=== PATIENT | male | born 1940 | race Caucasian/White ===

== ENCOUNTER 2024-05-24 03:52 | Inpatient (IN) | payer MEDICARE, BC, SELFPAY ==
[2024-05-23 17:53] VITALS: BP 139/75
[2024-05-23 18:19] LABS: % Basophils 0.4 % (0-2); % Eosinophils 0.2 % (0-6); % Immature Granulocytes 0.4 % (0-0.5); % Lymphocytes 8.2 % (20.5-51.1); % Monocytes 5.8 % (1.7-9.3); Absolute Lymphocytes 0.7 10^3/uL (1.2-3.4); Absolute Monocytes 0.5 10^3/uL (0.1-0.6); Absolute Neutrophils 6.9 10^3/uL (1.4-6.5); Hematocrit 34.3 % (39.0-52.0); Hemoglobin 11.2 g/dL (13.0-18.0); Mean Corp Hgb Conc. 32.7 g/dL (33.0-37.0); Mean Corpuscular Hgb 29.9 pg (27.0-31.0); Mean Corpuscular Volume 91.7 fL (80.0-94.0); Mean Platelet Volume 8.6 fL (7.4-10.4); Nucleated Red Blood Cells % 0 % (-); Platelet Count 183 10^3/uL (130-400); Red Blood Cell Count 3.74 10^6/uL (4.70-6.10); Red Cell Dist. Width 14.2 % (11.5-14.5); White Blood Cell Count 8.1 10^3/uL (4.8-10.8)
[2024-05-23 18:33] LABS: ALT (SGPT) 23 U/L (0-50); AST (SGOT) 27 U/L (17-59); Albumin 3.5 g/dl (3.5-5.0); Alkaline Phosphatase 69 U/L (38-126); Blood Urea Nitrogen 28 mg/dl (9-20); Calcium 8.8 mg/dl (8.4-10.2); Carbon Dioxide 28 mmol/L (22-30); Chloride 102 mmol/L (98-107); Glucose 123 mg/dl (70-99); Potassium 4.4 mmol/L (3.5-5.1); Sodium 139 mmol/L (135-145); Total Bilirubin 0.4 mg/dl (0.2-1.3); Total Protein 6.4 g/dl (6.3-8.2); eGFR > 60.00
[2024-05-23 18:45] LABS: Troponin I 0.017 ng/ml
[2024-05-23 20:25] LABS: Glucose - Point of Care 109 mg/dl (70-99)
[2024-05-23 21:44] LABS: Urine Albumin Trace (Neg - Trace); Urine Bilirubin Negative (Negative); Urine Character Clear (Clear); Urine Color Yellow; Urine Glucose Negative (Negative); Urine Ketone Negative (Negative); Urine Leukocyte Negative (Negative); Urine Nitrite Negative (Negative); Urine Occult Blood Trace (Negative); Urine Specific Gravity 1.015 (<1.030); Urine Urobilinogen Negative (Neg - 1+)
[2024-05-23 21:57] VITALS: BMI 28.8
[2024-05-23 21:58] VITALS: BP 141/61
[2024-05-23 21:58] LABS: Urine Bacteria Few (Negative); Urine White Cell 0-2 /HPF (0-5)
--- NOTE | 2024-05-23 22:36 | ED.GENMED ---
History of Present Illness
<DELFIN Delacruz - Last Filed: 05/24/24 05:24>
General
Chief Complaint: Weakness
Source: patient and significant other
Exam Limitations: none
Time Seen by Provider: 05/23/24 22:02
Nursing documentation reviewed up to this point in time: agreed with
History of Present Illness
History of Present Illness:
Patient is a 83 yo M w/ PMH of GA, stroke, DM, vascular disease, spinal stenosis, and inguinal hernia who presents w/ weakness x1 day. States he could not get out of bed today. Reports severe back pain and R groin pain that impede his movement.
States groin pain is worsening. Pain is in same place as hernia repair years ago. Pt denies bulging/swelling in groin. States pain has been present for months but worse in past few days. Pt also reports vomiting x 3 days. Vomited 2x today, 2x
yesterday, and once day before. States vomit looks like food he ate recently. Reports moderate amount of vomit but notes it comes on quickly.
If applicable-neuro sx onset
Onset of symptoms known: No
Time pt last seen normal is known: Yes
Date last time pt seen normal: 05/22/24
Review of Systems
<DELFIN Delacruz - Last Filed: 05/24/24 05:24>
Review of Systems
Constitutional: Denies fatigue
Respiratory: Denies cough or trouble breathing
Cardiac: Denies chest pain
ABD/GI: Reports abdominal pain, nausea and vomiting; Denies diarrhea, constipated or anorexia
Musculoskeletal: Reports back pain
Neurological: Reports headache and weakness; Denies dizzy or numbness
Phy Exam
<DELFIN Delacruz - Last Filed: 05/24/24 05:24>
General Physical Exam
General Presentation: well appearing
General age: appears stated age
General Habitus: elderly
General Mental: alert
Eye Exam
Eye Exam: PERRL
Cardiovascular Exam
Cardiovascular Exam: regular rate/rhythm, no edema, no gallop and no murmur
Pulmonary Exam
Pulmonary Exam: lungs clear, no respiratory distress, no rales, no crackles, no rhonchi and no wheezing
Gastrointestinal Exam
Gastrointestinal Exam: normal bowel sounds and other (tenderness in R groin)
Musculoskeletal Exam
Musculoskeletal Exam: edema (2+ B/L LE pitting edema) and other (some loss of sensation in BL LE)
Course
<DELFIN Delacruz - Last Filed: 05/24/24 05:24>
Orders/Labs/Results
Orders:
Orders
05/23/24 17:52
EKG [Electrocardiogram (*1)] Urgent
Reason for Study: Chest Pain
EKG- Treatment ONCE
05/23/24 18:12
CBC/With Diff [Complete Blood Count/With Diff] Urgent
CMP [Comprehensive Metabolic Panel] Urgent
Troponin I Urgent
05/23/24 21:37
Urinalysis Reflex To Culture Urgent
Date Specimen was Collected: 05/23/24
Time Specimen was Collected: 20:51
Urine Microscopic Reflex Cult Urgent
05/23/24 22:19
0.9% Sodium Chloride 1000 ml [Nss] 1,000 ml IV BOLUS
Acetaminophen [Tylenol] 1,000 mg PO NOW STA
05/23/24 22:50
COVID-19 Antigen Urgent
Source: Nasal Swab
Lactic Acid Urgent
Influenza A+B Rapid Molecular Urgent
DAYAN Source: Nasal Swab
Specimen Description:
05/23/24 23:35
Morphine Sulfate 4 mg IV NOW STA
05/24/24 00:01
CT Abd/pelvis W Iv Cont Urgent
Reason For Exam: RLQ pain, LBP, low grade fever
CT Head W/o Iv Contrast Urgent
Reason For Exam: acute profound weakness-remote hx CVA
05/24/24 02:47
Admit/Transfer Patient As Directed
Co-Sign Provider:
Level of Care: Inpatient admission
Assign to:: Telemetry
Physician / Group: Kevyn
Diagnosis: Ambulatory Dysfunction
Reason for Telemetry: Arrhythmia
Date to Stop Telemetry: 05/27/24
Time to Stop Telemetry: 11:00
Reason for Hospitalization: Ambulatory Dysfunction
Expected length of stay greater than two midnights?: Yes
ELOS- Estimated Length of Stay in days: 2
I certify the patient meets the requirements for IP care: Yes
PRN Pain Medication Management As Directed
May give lesser potent ordered pain med per pt: Yes
preference::
Protocol:: Medication orders for pain may be administered in a
manner that supports deferring to patient preference
when the pt is:
- Requesting an ordered lesser potent pain medication.
Least to most potent pain medications are defined
as: acetaminophen < NSAID < tramadol < opioids
(morphine, oxycodone, hydromorphone).
- Requesting a lesser dose of the same medication IF
ORDERED.
- Requesting a less intrusive route of administration
if both routes are prescribed by the provider (PO <
IV).
05/24/24 02:48
Code Status As Directed
Resuscitation Status: Do not resuscitate
Reached after discussion with pt or family/Healthcare POA: Yes
05/24/24 02:49
DNR Bracelet Application ONCE
05/24/24 02:53
CPK [Creatine Phosphokinase] Urgent
CRP [C-Reactive Protein] Urgent
ESR [Erythrocyte Sed Rate] Urgent
05/27/24 11:00
DC Protocol for Telemetry ONCE
Abnormal Lab Results
05/23/24 05/23/24 05/23/24
18:12 20:24 21:37
RBC 3.74 L 10^6/uL
(4.70-6.10)
Hgb 11.2 L g/dL
(13.0-18.0)
Hct 34.3 L %
(39.0-52.0)
MCHC 32.7 L g/dL
(33.0-37.0)
Absolute Neuts (auto) 6.9 H 10^3/uL
(1.4-6.5)
Absolute Lymphs (auto) 0.7 L 10^3/uL
(1.2-3.4)
Neutrophils % 85.0 H %
(42.2-75.2)
Lymphocytes % 8.2 L %
(20.5-51.1)
ESR
BUN 28 H mg/dl
(9-20)
Glucose 123 H mg/dl
(70-99)
Lactic Acid
C-Reactive Protein
Ur Occult Blood Reflex Trace A
(Negative)
Urine RBC 3-6 A /HPF
(0-2)
Urine Bacteria (Reflex) Few A
(Negative)
POC Glucose 109 H mg/dl
(70-99)
05/23/24 05/24/24
22:50 02:53
RBC
Hgb
Hct
MCHC
Absolute Neuts (auto)
Absolute Lymphs (auto)
Neutrophils %
Lymphocytes %
ESR 52 H mm/hour
(0-20)
BUN
Glucose
Lactic Acid 0.6 L mmol/L
(0.7-2.0)
C-Reactive Protein 37.30 H mg/L
(0.0-10.00)
Ur Occult Blood Reflex
Urine RBC
Urine Bacteria (Reflex)
POC Glucose
05/23/24 18:12
05/23/24 18:12
Vital Signs
Initial and Last Documented VS:
Initial Vital Signs
Temp Pulse Resp BP Pulse Ox
97.5 F 110 17 139/75 98
05/23/24 17:53 05/23/24 17:53 05/23/24 17:53 05/23/24 17:53 05/23/24 17:53
Last Documented Vital Signs
Temp Pulse Resp BP Pulse Ox
97.9 F 71 15 134/64 97
05/24/24 05:17 05/24/24 05:17 05/24/24 05:17 05/24/24 05:17 05/24/24 05:17
<Paige Hannah, DO - Last Filed: 05/24/24 02:08>
Orders/Labs/Results
Orders:
Orders
05/23/24 17:52
EKG [Electrocardiogram (*1)] Urgent
Reason for Study: Chest Pain
EKG- Treatment ONCE
05/23/24 18:12
CBC/With Diff [Complete Blood Count/With Diff] Urgent
CMP [Comprehensive Metabolic Panel] Urgent
Troponin I Urgent
05/23/24 21:37
Urinalysis Reflex To Culture Urgent
Date Specimen was Collected: 05/23/24
Time Specimen was Collected: 20:51
Urine Microscopic Reflex Cult Urgent
05/23/24 22:19
0.9% Sodium Chloride 1000 ml [Nss] 1,000 ml IV BOLUS
Acetaminophen [Tylenol] 1,000 mg PO NOW STA
05/23/24 22:50
COVID-19 Antigen Urgent
Source: Nasal Swab
Lactic Acid Urgent
Influenza A+B Rapid Molecular Urgent
DAYAN Source: Nasal Swab
Specimen Description:
05/23/24 23:35
Morphine Sulfate 4 mg IV NOW STA
05/24/24 00:01
CT Abd/pelvis W Iv Cont Urgent
Reason For Exam: RLQ pain, LBP, low grade fever
CT Head W/o Iv Contrast Urgent
Reason For Exam: acute profound weakness-remote hx CVA
05/24/24 02:47
Admit/Transfer Patient As Directed
Co-Sign Provider:
Level of Care: Inpatient admission
Assign to:: Telemetry
Physician / Group: Kevyn
Diagnosis: Ambulatory Dysfunction
Reason for Telemetry: Arrhythmia
Date to Stop Telemetry: 05/27/24
Time to Stop Telemetry: 11:00
Reason for Hospitalization: Ambulatory Dysfunction
Expected length of stay greater than two midnights?: Yes
ELOS- Estimated Length of Stay in days: 2
I certify the patient meets the requirements for IP care: Yes
PRN Pain Medication Management As Directed
May give lesser potent ordered pain med per pt: Yes
preference::
Protocol:: Medication orders for pain may be administered in a
manner that supports deferring to patient preference
when the pt is:
- Requesting an ordered lesser potent pain medication.
Least to most potent pain medications are defined
as: acetaminophen < NSAID < tramadol < opioids
(morphine, oxycodone, hydromorphone).
- Requesting a lesser dose of the same medication IF
ORDERED.
- Requesting a less intrusive route of administration
if both routes are prescribed by the provider (PO <
IV).
05/24/24 02:48
Code Status As Directed
Resuscitation Status: Do not resuscitate
Reached after discussion with pt or family/Healthcare POA: Yes
05/24/24 02:49
DNR Bracelet Application ONCE
05/24/24 02:53
CPK [Creatine Phosphokinase] Urgent
CRP [C-Reactive Protein] Urgent
ESR [Erythrocyte Sed Rate] Urgent
05/27/24 11:00
DC Protocol for Telemetry ONCE
Abnormal Lab Results
05/23/24 05/23/24 05/23/24
18:12 20:24 21:37
RBC 3.74 L 10^6/uL
(4.70-6.10)
Hgb 11.2 L g/dL
(13.0-18.0)
Hct 34.3 L %
(39.0-52.0)
MCHC 32.7 L g/dL
(33.0-37.0)
Absolute Neuts (auto) 6.9 H 10^3/uL
(1.4-6.5)
Absolute Lymphs (auto) 0.7 L 10^3/uL
(1.2-3.4)
Neutrophils % 85.0 H %
(42.2-75.2)
Lymphocytes % 8.2 L %
(20.5-51.1)
ESR
BUN 28 H mg/dl
(9-20)
Glucose 123 H mg/dl
(70-99)
Lactic Acid
C-Reactive Protein
Ur Occult Blood Reflex Trace A
(Negative)
Urine RBC 3-6 A /HPF
(0-2)
Urine Bacteria (Reflex) Few A
(Negative)
POC Glucose 109 H mg/dl
(70-99)
05/23/24 05/24/24
22:50 02:53
RBC
Hgb
Hct
MCHC
Absolute Neuts (auto)
Absolute Lymphs (auto)
Neutrophils %
Lymphocytes %
ESR 52 H mm/hour
(0-20)
BUN
Glucose
Lactic Acid 0.6 L mmol/L
(0.7-2.0)
C-Reactive Protein 37.30 H mg/L
(0.0-10.00)
Ur Occult Blood Reflex
Urine RBC
Urine Bacteria (Reflex)
POC Glucose
05/23/24 18:12
05/23/24 18:12
Vital Signs
Initial and Last Documented VS:
Initial Vital Signs
Temp Pulse Resp BP Pulse Ox
97.5 F 110 17 139/75 98
05/23/24 17:53 05/23/24 17:53 05/23/24 17:53 05/23/24 17:53 05/23/24 17:53
Last Documented Vital Signs
Temp Pulse Resp BP Pulse Ox
97.9 F 71 15 134/64 97
05/24/24 05:17 05/24/24 05:17 05/24/24 05:17 05/24/24 05:17 05/24/24 05:17
<DELFIN Delacruz - Last Filed: 05/24/24 05:24>
*Critical Care Note
Total Time (30-74mins, 75-104mins- exclusive of procedures): Not Applicable
<Paige Hannah DO - Last Filed: 05/24/24 02:08>
*Radiology
Radiology exam reviewed: radiology read reviewed (CT of the head, CT abdomen pelvis showed no acute findings.)
*Pulse Oximetry
Patient hypoxic: no
*EKG
Interpreted by ED Provider?: Yes
Interpretation: abnormal
Comparison EKG: no comparison EKG present
Rate: tachycardiac
Rhythm: sinus
[place]: normal axis
Interval: normal interval
QRS Pattern: right bundle branch block
Ischemia: other (Old inferior Q waves)
*Dough Mixer Interpretation
Rate: normal
Interpretation: normal
Rhythm: sinus
ED Attending Note
<DELFIN Delacruz - Last Filed: 05/24/24 05:24>
-
Portions of this chart may have been created with voice recognition software.� Occasional wrong word or��sound alike� substitutions may have occurred due to the inherent limitations of voice recognition software.
<Paige Hannah DO - Last Filed: 05/24/24 02:08>
ED Attending Note
Patient seen and examined by attending physician: Yes
I performed the substantive portion of visit, reviewed & personally made and approve the management plan that is documented in note by myself or ANNETTE.: Yes
ED Attending Note:
This is an 83-year-old gentleman who resides at home with his . He has history of CAD, GA, remote history of PTCA with stents as well as CABG. History of carotid artery disease status post carotid endarterectomy, remote history of CVA, history
of Parkinson disease, insulin requiring diabetes, hyperlipidemia. Macular degeneration. He also suffers with chronic low back pain related to spinal stenosis and chronic right inguinal pain thought to be related to scar tissue from right inguinal
hernia repair as a child.
Right inguinal pain persists despite excision of right inguinal scar tissue performed approximately 5 years ago.
He and his moved out of [place] 3 years ago to be closer to family in this area. He does still continue to follow with multiple specialists in [place] but has been slowly transitioning to local specialists.
He has undergone epidural steroid injections in his back number of years ago without relief.
Takes Tylenol arthritis twice daily as well as Salonpas, topical lidocaine with only minimal improvement.
He has chronic ambulatory dysfunction utilizing a walker to ambulate, has an adjustable bed at home but generally manages well and can get out of the house and into the car with his walker and in fact received his annual influenza vaccine and COVID
vaccine booster yesterday at his local pharmacy.
He does however admit to moderate increase in low back pain and right lower quadrant/right inguinal pain, progressive over the past week with intermittent nausea and vomiting over the past 3 days.
He has chronic constipation, generally passes a large bowel movement every 6 to 7 days. His last bowel movement was 2 days ago. Is not maintained on daily bowel regimen, takes Ducolax on rare occasions.
He has history of peripheral vascular disease with history of small diabetic ulcer distal left great toe that has recently healed. Underwent arterial Doppler study 3 to 4 weeks ago which showed arterial insufficiency but at this point no indication
for intervention.
He presents to the ED today due to significant/profound weakness, unable to get up out of bed this morning. He did suffer a slow slip and fall out of his adjustable recliner 2 weeks ago but since then no recurrent falls.
His was able to get him out of the house into the car tonight with assistance from 4 other family members and upon arrival to the ED required for security guards to assist him to get up out of the car into a wheelchair.
He denies cough no shortness of breath, no nasal congestion, no headache, no dizziness or lightheadedness, no chest pain. He denies dysuria and urgency nor hematuria.
As above, increase in low back pain and right inguinal/right lower quadrant pain over the past several days.
GENERAL: 83-year-old gentleman appears his stated age, awake and alert, appears in mild distress/mildly uncomfortable related to pain. Easily conversant. is accompanying. Low-grade fever noted 99.7 �F. Mildly tachycardic
EYE: pupils equal and reactive. Extraocular muscles are full. anicteric
NECK: Supple, nontender, no meningismus, no significant adenopathy.
ENT: posterior pharynx is clear, oral mucosa is dry. TM clear b/l, nares patent.
CARDIAC: Regular rate and rhythm, occasional ectopy. no murmur.
LUNGS: Clear breath sounds bilaterally, no acute respiratory distress, no wheezes/rales/rhonchi
ABDOMEN: Soft, nondistended, moderate to exquisite tenderness right inguinal to right distal lower quadrant over palpable firm ridge right inguinal region. Very minimal erythema of skin overlying right inguinal region. No r/g, no cvat. normoactive
BS.
NEUROLOGICAL: Alert and oriented x3, no facial asymmetry. Motor strength 5/5 bilaterally. Gross sensation is intact. Mild resting tremor of upper extremities. Significant truncal weakness; patient unable to lift himself up to sitting position
requiring several staff members to assist him to sit up.
SKIN: Mildly hot to touch and dry, minimally pale in color, poor turgor, few scattered dark purple ecchymotic patches bilateral forearms, bilateral anterior superior knees, no petechiae skin intact. No rash.
MUSCULOSKELETAL: No C/C/E. Feet are mildly cool to touch with shoddy dorsalis pedal pulses bilaterally. There is a minute/pinpoint area of eschar distal tip of the left great toe. No erythema. No palpable tenderness.
PSYCH: Normal and appropriate interaction.
Patient presents with profound generalized weakness, noted to have low-grade fever. Concern for viral syndrome, adverse reaction to COVID/influenza vaccines yesterday, concern for UTI, concern for appendicitis, diverticulitis, colitis.
Has known spinal stenosis with chronic low back pain, chronic right inguinal pain, Parkinson's disease with marked increase in low back pain/right lower quadrant pain over the past few days. Chronically utilizes a walker for ambulation however
required multiperson assist to get up and transition from bed to wheelchair, wheelchair to car and then again multiperson assistance to get out of the car to wheelchair and then wheelchair to stretcher.
Acute febrile illness could certainly be cause for generalized weakness and acute ambulatory dysfunction but must also consider CVA, exacerbation of Parkinson's disease, exacerbation of spinal stenosis.
Labs thus far reveal normal white blood cell count, mild anemia, mild left shift on differential, moderately elevated BUN concerning for dehydration. Glucose 123.
Chemistries are otherwise unremarkable.
Troponin 0.017.
EKG shows sinus tachycardia, right bundle branch block, old inferior Q's. No old EKG to compare. He denies chest pain, no cough no shortness of breath but with low-grade fever, will check COVID and influenza.
Urinalysis shows no evidence of UTI however a few RBCs and with right lower quadrant pain, increase in low back pain, concern for ureteric stone, other consideration is colitis, appendicitis thus will check CT abdomen pelvis with IV contrast.
Due to history of CVA, multiple risk factors for ASCVD, complaints of generalized weakness, concern for CVA will check CT of the head.
Give Tylenol for fever, initiate IV fluids for dehydration.
Will give a small IV dose of morphine for back pain, right lower quadrant pain.
Due to acute severe weakness, inability to stand/ambulate patient will require acute hospitalization.
Discharge Plan
Departure
Patient Disposition: Admit
Date of Disposition: 05/24/24
Time of Disposition: 02:05
Admit to: Med/Surg
Admit to doctor: Kevyn
Presentation/result/management discussed w/ accepting MD/DO: Hospitalist
Condition: Fair
Discharge Problem:
acute severe generalized weakness, Acute febrile illness, Acute exacerbation of chronic low back pain
Interventions
Interventions:
*Risk Screen - Suicide Last Done: 05/23/24 17:53
*General Assessment Last Done: 05/23/24 21:59
*Neglect/Abuse Screening Last Done: 05/23/24 21:59
ED- Fall Risk Assessment Last Done: 05/24/24 04:00
*ED COVID-19 Vaccine History Last Done: 05/23/24 22:00
*Nursing Disposition Last Done: 05/24/24 05:17
ED- Cardiac Assessment Last Done: 05/23/24 22:00
ED- Neurological Assessment Last Done: 05/23/24 22:00
ED- Pulmonary Assessment Last Done: 05/23/24 22:00
Discharge Date and Time
Discharge Date/Time: 05/24/24 05:18
[2024-05-23] MEDS: NSS 1000 IV (22:53)
[2024-05-23] MEDS: TYLENOL 1000 MG PO (22:54)
[2024-05-23 23:00] VITALS: BP 110/67
[2024-05-23 23:13] LABS: Lactic Acid 0.6 mmol/L (0.7-2.0)
[2024-05-23 23:22] LABS: COVID-19 Antigen Negative (Negative)
[2024-05-23] MEDS: MORPHINE SULFATE 4 MG IV (23:53)
[2024-05-24] VITALS (14 sets, daily range): BP systolic 104–166; BP diastolic 58–90; PULSE 91; O2SAT 96
--- NOTE | 2024-05-24 03:19 | HPS.HSE ---
Family Physician
-
Family Physician: * NONE
Chief Complaint
-
Weakness
History of Present Illness
Patient is an 83y M with PMH significant for Parkinson's disease, spinal stenosis and ASCVD who presents to ED complaining of back pain, R groin pain and ambulatory dysfunction. History obtained from patient and his at the bedside.
reports long history of functional decline. At recent baseline, patient ambulates with a walker over very short distances within the home. Doctor's visits and trips outside of the home are extremely difficult given his mobility issues.
Patient went to his PCP for COVID and flu vaccines yesterday. He did not leave the vehicle due to his baseline ambulatory issues.
This AM upon waking, he was unable to get out of bed at all - which is not typical for him. He has an adjustable hospital bed and is typically able to get up with or without minimal assistance.
This AM he could not get up at all. states that he was extremely weak. Patient primarily complains of pain in the low back and the R groin which were severe and limited mobility.
They were able to eventually get him up and into the living room into his chair. However, this was much more difficult than usual and patient was brought to the ED for further evaluation.
Patient has long-standing / chronic complaints of back pain and R groin pain. He attributes this to spinal stenosis +/- chronic inguinal hernia repair discomfort.
These complaints are not new, but he states that pain was more severe today.
Patient has had no recent medication changes / adjustments.
He denies any recent illness including cough, dyspnea, fevers / chills, N/V/D, etc.
Medical History
Past Medical History
Past Medical History: Reports Other
Additional Past Medical History:
ASCVD (CAD, Carotid Stenosis, CVA, PAD)
DM-II
Parkinson's Disease
Macular Degeneration
Anxiety / Depression
Spinal Stenosis
Chronic Pain Syndrome
Past Surgical History: Reports Other
Additional Past Surgical History:
CABG x 3
Right CEA
Right Inguinal Herniorrhaphy
Right Inguinal Revision / Scar Tissue Removal
Social History
Tobacco: Former Smoker (Quit smoking about 35 years ago. 5ppd prior to that. > 100 pack years total use.)
Alcohol: None
Drug: None
Personal:
Living: With Family
Family History
Family History: Not pertinent
Allergies / Home Medications
Allergies reflects when Allergies were last updated in [employer].
Home Medications with original date entered in [employer]
Allergy/Medication List:
Allergies
Allergy/AdvReac Type Severity Reaction Status Date / Time
No Known Allergies Allergy Unverified 05/23/24 17:57
Home Medications
acetaminophen 650 mg tablet,extended release (Tylenol Arthritis Pain) 1,300 mg PO [id number] PRN mild pain 05/23/24
aspirin 81 mg chewable tablet 81 mg PO HS 05/23/24
atorvastatin 80 mg tablet 80 mg PO HS 05/23/24
fluoxetine 20 mg tablet 20 mg PO DAILY 05/23/24
insulin aspart U-100 100 unit/mL (3 mL) subcutaneous pen (Novolog FlexPen U-100 Insulin aspart) 1 sliding scale dose SC TID 05/23/24
insulin glargine 100 unit/mL (3 mL) subcutaneous pen (Basaglar KwikPen U-100 Insulin) 14 unit SC HS 05/23/24
lidocaine HCl 4 %-benzyl alcohol 10 % topical liquid roll-on (Salonpas Lidocaine Plus) 1 ea topical QIDPRN PRN right side and lower back pain 05/23/24
rasagiline 1 mg tablet 1 mg PO DAILY 05/23/24
Review of Systems
-
History Source: Patient and Family
A 12 point ROS was completed and negative except as noted: Yes
Constitutional: Reports Fatigue; Denies Fever or Chills
EENT: Denies Sore Throat
Respiratory: Denies Cough or Trouble Breathing
Cardiac: Denies Chest Pain or Palpitations
Abdomen/GI: Denies Abdominal Pain, Nausea, Vomiting, Diarrhea or Constipated
: Denies Dysuria or Frequency
Musculoskeletal: Reports Joint Pain and Other (Back Pain / R Groin Pain); Denies Edema
Neurological: Reports Weakness; Denies Dizzy, Headache or Numbness
Psych: Denies Depression or Anxiety
Physical Exam
Vital Signs
Vital Signs
Temp Pulse Resp BP Pulse Ox
99.7 F 85 16 135/89 98
05/23/24 21:58 05/24/24 02:45 05/24/24 02:45 05/24/24 02:00 05/24/24 02:45
Physical Exam
General: Other (83y M in no acute distress.)
HEENT: Moist mucous membranes, PERRLA and Other (No JVD.)
Respiratory: Other (Decreased BS at bases - otherwise clear.)
Cardiac: S1/S2, Regular Rhythm and Murmur (II/ NOREEN)
GI: Soft, Non Distended and Other (Decreased BS throughout. Mild tenderness in epigastric region and RLQ. No rebound / guarding.)
Musculoskeletal: No Clubbing, No Cyanosis and No Edema
Neuro: AO x 3 and Other (L weakness compared to R - presumably due to prior CVA. Weakness in bilateral LEs - perhaps slightly greater on the L. Reflexes diminished in LEs. Sensation is intact.)
Laboratory Results
-
05/23/24 18:12
05/23/24 18:12
Laboratory Results
Lactic Acid 0.6 mmol/L (0.7-2.0) L 05/23/24 22:50
Total Bilirubin 0.4 mg/dl (0.2-1.3) 05/23/24 18:12
AST 27 U/L (17-59) 05/23/24 18:12
ALT 23 U/L (0-50) 05/23/24 18:12
Alkaline Phosphatase 69 U/L (38-126) 05/23/24 18:12
Troponin I 0.017 ng/ml 05/23/24 18:12
Impression/Plan
-
A/P: Patient is an 83y M with PMH significant for ASCVD, Parkinson's disease and prior CVA who presents to ED for evaluation of generalized weakness and ambulatory dysfunction.
Weakness / Ambulatory Dysfunction
- Admit for further evaluation and treatment.
- Very difficult to gauge acuity here as clearly has been some functional decline over time.
- CT head done in the ED is unremarkable.
- Afebrile, non-toxic appearing.
- PT / OT evaluations.
- Neurology evaluation for additional recommendations.
- Patient did just have influenza and COVID vaccines - but less than 24 hours prior to new / increased weakness.
- Consider LP for further evaluation if persistent or certainly progressive weakness.
- Follow neurologic exam for any changes.
- Would be helpful to obtain any available prior records (no previous visits here).
Back Pain
R Groin Pain
Lumbar Spinal Stenosis
- Again, acute on chronic complaint with longstanding issues with chronic pain in both locations.
- Difficult to tell if mobility issues this AM were secondary to weakness or discomfort / pain with movement.
- CT scan with no evident acute spinal abnormality.
- Trial of gabapentin for pain control.
- Consider dedicated spinal imaging if needed.
- Follow-up ESR, CRP, etc.
Parkinson's Disease
- Current symptoms may reflect progression of Parkinson's.
- No recent med changes per patient / .
- Neuro, PT evals as noted above.
- Continue current rasagiline without change.
- Will hold fluoxetine for now given interaction with rasagiline.
ASCVD
- Stable. Continue current CV med regimen.
- Patient with documented coronary, carotid and peripheral arterial disease.
- Chronic L weakness s/p prior CVA - evidence of LUE atrophy due to chronic weakness, etc.
DM-II
- Stable. Continue basal : bolus insulin regimen.
- Follow glucose and cover with SSI as needed.
- Update A1C.
DVT Prophylaxis: SCDs
Code Status: DNR
[2024-05-24 03:42] LABS: Creatine Phosphokinase 67 U/L (55-170); Erythrocyte Sed Rate 52 mm/hour (0-20)
[2024-05-24] MEDS: NSS 1000 IV (06:36)
[2024-05-24 07:12] LABS: Hematocrit 32.5 % (39.0-52.0); Hemoglobin 10.4 g/dL (13.0-18.0); Mean Corpuscular Hgb 30.1 pg (27.0-31.0); Mean Corpuscular Volume 94.2 fL (80.0-94.0); Mean Platelet Volume 8.4 fL (7.4-10.4); Platelet Count 160 10^3/uL (130-400); Red Blood Cell Count 3.45 10^6/uL (4.70-6.10); Red Cell Dist. Width 14.5 % (11.5-14.5); White Blood Cell Count 4.3 10^3/uL (4.8-10.8)
[2024-05-24 07:37] LABS: Blood Urea Nitrogen 26 mg/dl (9-20); Calcium 8.6 mg/dl (8.4-10.2); Carbon Dioxide 29 mmol/L (22-30); Chloride 103 mmol/L (98-107); Estimated Creatinine Clearance 57 ml/min; Glucose 99 mg/dl (70-99); HDL Cholesterol 46 mg/dl; LDL Cholesterol, Calculated 63 mg/dl; Potassium 4.6 mmol/L (3.5-5.1); Sodium 139 mmol/L (135-145); Total Cholesterol 120 mg/dl (50-199); Triglyceride 58 mg/dl (10-149); Very Low Density Lipoprotein 11 mg/dl (0-30); eGFR > 60.00
[2024-05-24] MEDS: DUONEB 3 ML INH (07:53)
[2024-05-24 07:56] LABS: Glucose - Point of Care 97 mg/dl (70-99)
[2024-05-24 08:06] LABS: TSH Reflex To Free T4 1.29 uIU/ml (0.47-4.68)
[2024-05-24 08:40] LABS: Troponin I 0.021 ng/ml
[2024-05-24 09:05] LABS: Glycohemoglobin (HgbA1c) 6.7 % (4.0-5.6)
[2024-05-24] MEDS: NOVOLOG FLEXPEN-LOW RESISTANCE SC ×2 (09:06→14:08)
[2024-05-24] MEDS: NSS (PRESERVATIVE FREE) 10 ML IV (09:26)
[2024-05-24] MEDS: PROTONIX IV 40 MG IV (09:26)
[2024-05-24] MEDS: NEURONTIN 100 MG PO ×2 (09:26→17:50)
[2024-05-24] MEDS: DESENEX/MITRAZOL/ZEASORB 1 APPLIC TOPICAL ×2 (09:26→20:38)
--- NOTE | 2024-05-24 09:42 | W.PN.HOSP.TC ---
Addendum entered and electronically signed by Murphy Linn MD 05/24/24 12:35:
#Concern for LLL CAP with unspecified organism with small effusion
Rocephin/Doxy
check Legionella/S.pneumonia urinary Ag
Sputum Cx if possible
CT chest to r/o loculated fluid, might need pulm consult based on findings
Original Note:
Today's Communication/Plan
-
see PN
Assessment / Plan
Assessment / Plan
83yo M with PMHx of DM, HTN, anxiety, chronic back pain with Hx of spinal stenosis and R hip pain came with c/o worsening of his ambilatory capacity and back pain. during further questioning - patient has stable limited ambulatory capacity for
years, previously followed in [facility] but since he moved to [place] - he was not seen by any orthopedist/spine therapist for years as per patient and . On the day of admisison he became extremely weak and could not even hold himself
on his legs (usually minimally ambulatory with walker)
CT on admission found chronic T12 compression Fx and b/l severe OA of the hips
On admission concern for recent flu and COVID-19 shots causing weakness
A/P:
#ambulatory dysfunction 2/2 chronic T12 compression Fx and b/l severe OA of the hips with PMHx of spinal stenosis most likely complicated by osteoporosis
PT/OT
Neurology consult
MRI thoracic and lumbar spine
As per review with the patient - pain is chronic, mildly exacerbated 2 days ago and improved since then to the baseline and patient has baseline ambulatory deficiency
pain mgmt
check vit D 0.25
#Chronic pancreatitis with 9mm calcification obstructing pancreatic duct
#Distal esophageal thickening
GI cosnult
#LLL atelectasis
incentive spirometry
No concern for pneumonia with absent fevers and normal WBC count and without respiratory symptoms
#Mild anemia
anemia w/u including FOBT
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
Cr WNL
outpatient nephrology f/u
DM diet, accuchecks, Insulin SS, continue lantus 14units home dose
Cont gabapentin
#CAD stable
#HLD
Troponin WNL
cont home meds
#ESR/CRP elevation
non-specific findings
DVT ppx on lovenox
DNR/DNI
I have spent at least 59min reviewing chart, test results, communication with consultants and direct patient care
Anticipated Discharge: > 48 hours
Subjective/Interval History
-
Date of Service: May 24, 2024
Objective Data
-
Labs:
Laboratory Results
05/24/24
06:59
WBC 4.3 L
Hgb 10.4 L
Hct 32.5 L
Plt Count 160
Sodium 139
Potassium 4.6
Chloride 103
Carbon Dioxide 29
BUN 26 H
Creatinine 1.1
Glucose 99
Calcium 8.6
Vital Signs:
Vital Signs
Temp Pulse Resp BP Pulse Ox
98.2 F 103 16 166/72 98
05/24/24 07:00 05/24/24 07:57 05/24/24 07:57 05/24/24 07:00 05/24/24 07:57
Review of Systems
-
History Source: Patient
All other systems: Reviewed and negative
Musculoskeletal: Reports Other (back and R groin pain)
Physical Exam
-
General: No Apparent Distress and Comfortable
HEENT: Normocephalic and Atraumatic
Respiratory: Clear to Auscultation
Cardiac: Regular Rhythm
GI: Soft, Nontender and Nondistended
Musculoskeletal: No Clubbing, No Cyanosis and No Edema
Neuro: Awake, Alert, Oriented, AO x 3 and No Motor Deficits (RLE weakness noted)
Psych: Calm
[2024-05-24 10:45] LABS: Vitamin D, 25-OH*** < 12.8 ng/mL (30-80)
--- NOTE | 2024-05-24 10:45 | CON.GI ---
Addendum entered and electronically signed by Efe Varghese MD 05/25/24 09:41:
I saw and examined the patient.
The CARTON CATCHER or PA's note was reviewed and I agree with the note.
Comment:
Patient is a 83 y/o man with a hx of spinal stenosis, gerd, constipation, inguinal hernia with repair years ago with chronic pain. Has a CT scan that shows chronic pancreatitis with ductal calcification and dilation. He denies abd pain but does
state inguinal pain which is chronic continues and he was told it was scar tissue. has constipation chronically. CT also shows esophageal thickening likely esophagitis.
abd: soft, nontender
impression:
chronic pancreatitis and esophagitis by CT scan
constipation
plan:
outpatient f/u with Dr. Krishnan our pancreatic specialist to discuss need for further outpatient evaluation
bowel regimen as below
PPI
ideally should have egd but doesn't currently want
will have office call for outpt appt with Dr. Krishnan
Pt seen 05/25/24 at 7am
Original Note:
Consultation
-
Date/Time Consultation Requested: 05/24/24 0940
Date/Time Consultation Performed: 05/24/24 1040
Requesting Provider: Murphy Linn MD
Performing Provider: REZA Billy, Efe Varghese MD
Reason for Consultation: abnormal imaging
Medical History
Chief Complaint / HPI
Chief Complaint: right groin pain and back apin
History of Present Illness:
Pt is a 83yo with hx ASCVD, CAD, carotid stenosis, CVA, PAD, NIDDM, parkinson's, depression/anxiety, spinal stenosis, chronic pain with ER evaluation with back and groin pain. On admission CT completed with concern for severe chronic pancreatitis
and 9 mm calcification pancreatic body obstructing pancreatic duct, atherosclerotic disease and mild to moderate wall thickening of distal esophagus likely esophagitis less likely carcinoma.
In reviewing with patient he admits to nausea and vomiting at times. He report some dark emesis but denies wt loss. He has groin pain but denies any upper abdominal pain. He also report issue with constipation with stools weekly and straining
for stools. He was given stool softener with some improvement denies dysphagia, odynophagia, GERD, diarrhea or rectal bleeding. Hx several colonoscopies in past with recall normal results.
Past Medical History
Past Medical History: CAD, CVA, NIDDM, Psychiatric (anxiety/depression) and Other (ASCVD, carotid stenosis, PAD, parkinson's disease, macular degeneration, spinal stenosis, chronic pain)
Past Surgical History: Cardiac (CABG x3) and Other (right CEA, inguinal hernia repair, )
Social History
Tobacco: Former Smoker (5 PPD in past )
Alcohol: None
Drug: None
Personal:
Living: With Family
Employment: Retired
Family History
Family History: Other (no family hx colon Ca or polyps)
Allergies / Home Medications
Allergy/AdvReac Type Severity Reaction Status Date / Time
No Known Allergies Allergy Unverified 05/23/24 17:57
�Medication �Instructions �Recorded
acetaminophen 650 mg 1,300 mg PO [id number] PRN mild pain 05/23/24
tablet,extended release (Tylenol
Arthritis Pain)
aspirin 81 mg chewable tablet 81 mg PO HS 05/23/24
atorvastatin 80 mg tablet 80 mg PO HS 05/23/24
fluoxetine 20 mg tablet 20 mg PO DAILY 05/23/24
insulin aspart U-100 100 unit/mL 1 sliding scale dose SC TID 05/23/24
(3 mL) subcutaneous pen (Novolog
FlexPen U-100 Insulin aspart)
insulin glargine 100 unit/mL (3 14 unit SC HS 05/23/24
mL) subcutaneous pen (Basaglar
KwikPen U-100 Insulin)
lidocaine HCl 4 %-benzyl alcohol 1 ea topical QIDPRN PRN right side 05/23/24
10 % topical liquid roll-on and lower back pain
(Salonpas Lidocaine Plus)
rasagiline 1 mg tablet 1 mg PO DAILY 05/23/24
Review of Systems
-
History Source: Patient
Constitutional: Reports No Symptoms
EENT: Reports No Symptoms
Respiratory: Reports Trouble Breathing (on admission)
Cardiac: Reports Chest Pain (on admission)
Abdomen/GI: Reports Abdominal Pain (RLQ groin pain), Nausea, Vomiting and Constipated
: Reports No Symptoms
Musculoskeletal: Reports Other (weakness, slow gait )
Skin: Reports No Symptoms
Neurological: Reports Weakness
Endocrine: Reports No Symptoms
Hematologic/Lymphatic: Reports No Symptoms
Vital Signs
Temp Pulse Resp BP Pulse Ox
98.2 F 103 16 166/72 98
05/24/24 07:00 05/24/24 07:57 05/24/24 07:57 05/24/24 07:00 05/24/24 07:57
Physical Exam
Exam
General: Other (elderly male with note tremor but alert and cooperative in exam )
HEENT: Normocephalic and Anicteric
Respiratory: Clear
Cardiac: Regular Rhythm
GI: Soft, Tender (R groin ) and Distended (chronic large abdomen )
Genito-urinary: No Costovertebral Tender
Musculoskeletal: No Clubbing and No Cyanosis
Skin: Warm and Dry
Neuro: Awake, Alert and AO x 3
Psych: Calm
Results
WBC 4.3 10^3/uL (4.8-10.8) L 05/24/24 06:59
Hgb 10.4 g/dL (13.0-18.0) L 05/24/24 06:59
Hct 32.5 % (39.0-52.0) L 05/24/24 06:59
MCV 94.2 fL (80.0-94.0) H 05/24/24 06:59
Plt Count 160 10^3/uL (130-400) 05/24/24 06:59
Absolute Neuts (auto) 6.9 10^3/uL (1.4-6.5) H 05/23/24 18:12
Sodium 139 mmol/L (135-145) 05/24/24 06:59
Potassium 4.6 mmol/L (3.5-5.1) 05/24/24 06:59
Chloride 103 mmol/L (98-107) 05/24/24 06:59
Carbon Dioxide 29 mmol/L (22-30) 05/24/24 06:59
BUN 26 mg/dl (9-20) H 05/24/24 06:59
Creatinine 1.1 mg/dL (0.7-1.3) 05/24/24 06:59
Calcium 8.6 mg/dl (8.4-10.2) 05/24/24 06:59
Total Bilirubin 0.4 mg/dl (0.2-1.3) 05/23/24 18:12
AST 27 U/L (17-59) 05/23/24 18:12
ALT 23 U/L (0-50) 05/23/24 18:12
Alkaline Phosphatase 69 U/L (38-126) 05/23/24 18:12
Diagnostic Image Results:
05/24/24 CT Abd/pelvis W Iv Cont
1. SEVERE CHRONIC PANCREATITIS with a 9 mm calcification in the pancreatic body obstructing the pancreatic duct.
2. Moderate chronic bilateral renal disease.
3. SEVERE CALCIFIC ATHEROSCLEROTIC DISEASE in the abdominal aorta, common iliac arteries, common femoral arteries, and superficial femoral arteries.
4. Mild to moderate circumferential wall thickening in the distal esophagus (probably esophagitis and less likely esophageal carcinoma).
5. Small left pleural effusion.
6. Mild subpleural airspace consolidation in the left lower lobe (either compressive atelectasis or left lower lobe pneumonia).
7. Diffuse bone demineralization.
Prior GI Procedures:
EGD: pt did not recall
Colonoscopy: several years ago recalls as normal
Assessment / Plan
-
Pt is a 83yo with hx ASCVD, CAD, carotid stenosis, CVA, PAD, NIDDM, parkinson's, depression/anxiety, spinal stenosis, chronic pain with ER evaluation with back and groin pain. On admission CT completed with concern for severe chronic pancreatitis
and 9 mm calcification pancreatic body obstructing pancreatic duct, atherosclerotic disease and mild to moderate wall thickening of distal esophagus likely esophagitis less likely carcinoma. Pt also with some complaint of vomiting with coffee
ground at time and constipation.
-groin/back pain
-chronic constipation
-nausea with vomiting coffee ground at times
-CT with chronic pancreatitis with 9 mm calcification pancreatic body obstructing pancreatic duct
-CT with concern for esophageal thickening less likely mass
-anemia
-parkinson's disease
other med problems:
-obesity
-CVA
-PAD
-NIDDM
-CAD with prior CABG
-hx heavy tobacco use
-depression/anxiety
-chronic pain
PLAN:
Pt with multiple issues - for chronic constipation and last stool 1 week ago will give Dulcolax and offered enema which he currently declined as last stool 1 week ago
add miralax daily along with senna
limit narcotic if able
he also complaints of nausea and vomiting with ? coffee ground may be on basis of constipation vs noted esophagitis
cont PPI
discussed EGD - he did not think he would want to proceed but agreeable to some adjustment in bowel regiment -- discussed esophageal cancer could be missed if not completed
also discussed pancreatic calcification currently without any upper abdominal pain and did not recall hx pancreatitis in past -- recommended OP follow up with Dr. Krishnan to review for any intervention
trend hbg
cont work up for groin/back pain -- constipation may also be adding to issue
-
-
Thank you for consultation and allowing me to participate in the patient's care. Please call the continuity editor GI physician during the after hours with any questions or concerns.
--- NOTE | 2024-05-24 12:47 | CM ---
Initial assessment was completed with pt at bedside.
Pt is an 83yr old admitted with ambulatory dysfunction
At baseline, pt lives with his in a 1 level apt with 0ste.
SW did follow up with call to . reports that pt needs aide with almost everything. Pt has very poor eyesight and needs help with all ADLs and IADLs. Per , he was mostly able to use the RW for ambulation and going to the bathroom up
until a few days ago when he became very heavy for transfers and needing aide with ambulation. Pt does not drive.
Pt has a hospital bed, walk in shower with a shower bench, RW, and raised toilet seat with bars.
PT is recommending SNF, and SW encouraged to review List of Facilities and Medicare.gov. notes that they are newer to the area and plans to review list and speak with her family. is also considering a move to Assisted Living if pt
would become appropriate.
PCP;
Pharm; [facility]
PLAN; SNF, Will need referrals
[2024-05-24 14:06] LABS: Glucose - Point of Care 135 mg/dl (70-99)
[2024-05-24 14:52] LABS: Troponin I 0.016 ng/ml
[2024-05-24] MEDS: STERILE WATER FOR INJECTION 10 ML IV (15:15)
[2024-05-24] MEDS: MIRALAX 17 GRAMS PO (15:15)
[2024-05-24] MEDS: ROCEPHIN 1000 MG IV (15:16)
[2024-05-24] MEDS: DRISDOL (VITAMIN D2) 50000 UNITS PO (15:16)
--- NOTE | 2024-05-24 15:49 | CON.NS ---
Consultation
-
Date/Time Consultation Performed: 05/24/2024; 15:50
Performing Provider: Abdirahman
Chief Complaint
History of Present Illness
This is a neurosurgical consultation or an 83-year-old male, past medical history of Parkinson's disease, known lumbar spinal stenosis, who presented to the emergency room with back pain, right groin pain, and ambulatory dysfunction. The
reported a long history of functional decline. Patient has limited mobility. Patient did have COVID and flu vaccines the day prior. As noted, per chart review, that he was unable to get out of bed this morning upon waking. He reports acute
exacerbation of his chronic back pain. He had a MRI of the lumbar spine which is available for review. Neurosurgery consulted for further input.
Patient seen examined. He reports that his back pain mild is overall chronic, is better than it was upon admission. He attributes this due to the pain medication. He reports some radiation of pain down bilateral lower extremities, but this is not
consistent. He reports more so right groin pain, which is chronic. He denies any numbness or tingling in lower extremities.
He reports that his pain is primarily down in his tailbone/coccyx area and has been exacerbated after a ? Recent fall
Review of Systems
-
A 10 point review of systems including constitutional, ENT, cardiovascular, respiratory, GI, , neurologic, musculoskeletal, psychiatric, hematologic, endocrinologic was performed, and was negative except for as stated in HPI.
Medication and Allergies
Home Medications
Home Medications
�Medication �Instructions �Recorded
acetaminophen 650 mg 1,300 mg PO [id number] PRN mild pain 05/23/24
tablet,extended release (Tylenol
Arthritis Pain)
aspirin 81 mg chewable tablet 81 mg PO HS 05/23/24
atorvastatin 80 mg tablet 80 mg PO HS 05/23/24
fluoxetine 20 mg tablet 20 mg PO DAILY 05/23/24
insulin aspart U-100 100 unit/mL 1 sliding scale dose SC TID 05/23/24
(3 mL) subcutaneous pen (Novolog
FlexPen U-100 Insulin aspart)
insulin glargine 100 unit/mL (3 14 unit SC HS 05/23/24
mL) subcutaneous pen (Basaglar
KwikPen U-100 Insulin)
lidocaine HCl 4 %-benzyl alcohol 1 ea topical QIDPRN PRN right side 05/23/24
10 % topical liquid roll-on and lower back pain
(Salonpas Lidocaine Plus)
rasagiline 1 mg tablet 1 mg PO DAILY 05/23/24
Allergies
Allergies
Allergy/AdvReac Type Severity Reaction Status Date / Time
No Known Allergies Allergy Unverified 05/23/24 17:57
Physical Exam
-
Exam:
Awake, alert, mildly confused.
Cranial nerves II to XII are grossly intact.
Motor: 5/5 strength bilaterally in upper extremities and lower extremities in all muscle groups.
Sensation to light touch is intact bilaterally in upper and lower extremities.
Gait not tested.
Head is normocephalic, atraumatic.
Neck is supple
Breathing nonlabored
Pulses palpable
Extremities are warm
Abdomen is soft
MRI of the thoracic spine performed on 05/24/2024 at approximately 12:20 PM demonstrates no obvious evidence of thoracic spinal cord compression. MRI of the lumbar spine performed on 05/24/2024 at approximately 12:40 PM demonstrates patent spinal
canal without any overt severe spinal canal compression or compromise. Patient has multilevel spondylotic changes most significant at L4-L5 where he has bilateral lateral recess stenosis due to facet hypertrophy, ligamentum flavum thickening, and
broad-based disc bulge. Special care was also taken to the T12-L1, L1-L2 levels and no obvious evidence of foraminal impingement or narrowing is seen.
No obvious evidence of STIR signal hyperintensity noted to suggest acute fracture.
Problems
-
Problem Status Onset Code
Acute exacerbation of chronic low back pain M54.50, G89.29
Acute febrile illness R50.9
Assessment / Plan
-
This is an 83-year-old male who presents with acute exacerbation of his chronic low back pain. Patient has evidence of multilevel lumbar spondylosis. There is no obvious evidence of significant spinal canal compression or cauda equina compromise.
Recommend course of pain control, NSAIDs, use muscle relaxants as needed.
PT/OT.
Follow-up with physiatry/pain management for possible therapeutic DOTTIE as outpatient, if needed.
No urgent neurosurgical intervention/operative intervention is recommended.
[2024-05-24 17:21] LABS: Glucose - Point of Care 150 mg/dl (70-99)
[2024-05-24] MEDS: NOVOLOG FLEXPEN-LOW RESISTANCE 1 UNITS SC (17:49)
[2024-05-24] MEDS: LOVENOX 40 MG SC (17:50)
--- NOTE | 2024-05-24 19:53 | PTCARENOTE ---
Assumed care of pt from previous nurse. Pt denies pain. Pt with many questions about care plan, time spent reviewing same. Pt call perez is within reach, pt rings [facility]. will cont to monitor.
--- NOTE | 2024-05-24 19:57 | CON.NEURO4 ---
Consultation - Neurology 4
-
CONSULTING PHYSICIAN: Ke Norris MD(Neurology)
REFERRING PHYSICIAN: Hospitalist
DICTATED BY: Ke Norris MD
DATE/TIME OF REQUEST: 05/24/2024
DATE/TIME OF CONSULTATION: 05/24/2024
Reason for Consultation: Weakness
History of Present Illness:
This is a 83 year old right handed (male who has presented to the hospital with (chief complaint) of LBP with leg weakness. He gives a h/o lumbar spinal stenosis,
CAD, Carotid Stenosis,PAD),DM-II, Macular Degeneration,,Anxiety / Depression, Chronic Pain Syndrome who presented to the emergency room with worsening low back pain, radiating into the groin and right leg with difficulty standing and walking. He
has been suffering from the same over the last 5 years. In the last 1-2 weeks symptoms have been worsening. He was unable to get out of bed yesterday morning upon waking. And that his back pain is much worse. No incontinence
Patient went to his PCP for COVID and flu vaccines . He did not leave the vehicle due to his baseline ambulatory issues.
Sunday AM upon waking, he was unable to get out of bed at all - which is not typical for him. He has an adjustable hospital bed and is typically able to get up with or without minimal assistance. states that he was extremely weak. Patient
primarily complains of pain in the low back and the R groin which were severe and limited mobility.
They were able to eventually get him up and into the living room into his chair. However, this was much more difficult than usual and patient was brought to the ED for further evaluation.
The reported a long history of functional decline. Patient has limited mobility. Patient did have COVID and flu vaccines the day prior.
He had a MRI of the lumbar spine which revealed spinal stenosis [id number]
Past Medical History: As above
Surgical History: CABG, CEA. Hernia repair
Family History: [place]
Social History: lives at home with his
Allergies: NKA
Home Medications: See addendum
Review of Symptoms:
Patient denies any fever, headache, chest pain, shortness of breath, GI or symptoms.
�Per the HPI.�All systems are reviewed negative except above.
�-
Vital Signs:
The patient has a
Temp Pulse Resp BP Pulse Ox
98.2 F 103 16 166/72 98
05/24/24 07:00 05/24/24 07:57 05/24/24 07:57 05/24/24 07:00 05/24/24 07:57
Physical Exam:
The patient is afebrile, heart sounds S1 and S2 are (regular / irregular), and chest is clear to auscultation bilaterally.
- If not clear, describe.
NIH Stroke Scale (if applicable):
I performed the NIH stroke scale on the patient on (date & time). The patient scored ( ) points on the NIH stroke scale assessment, which were assigned as follows:
Neurologic Examination:
The patient is awake, alert and oriented x 3. (He/She) is able to follow commands and answer questions appropriately. There is no aphasia or dysarthria. On cranial nerve assessment, pupils are 3 mm bilateral, round and reactive to light and
accommodation. Visual lemus are full. Extraocular movements are intact. Facial sensations are intact and bilaterally symmetrical, there is no facial asymmetry. Hearing is intact bilaterally to normal conversation volume. Tongue palate and uvula
are midline. Sternocleidomastoid strengths are full bilaterally. Motor strengths are 5/5 bilateral upper and lower extremities on medical research [place] scale. There is no drift or involuntary movement noted. Deep tendon reflexes are 2+ bilateral
upper and lower extremities and Babinski is absent bilaterally. Sensations of pain, touch, temperature and vibration are intact and bilaterally symmetrical. There was no extinction noted on double simultaneous stimulation. Coordination is intact by
finger to nose bilaterally.
Lab Results: See addendum
Neuro Imaging: MRI CERVICAL SPINE:
1. Small disc herniations at C3/C4 and C4/C5 causing mild spinal cord compression.
2. Mild multilevel cervical discogenic degenerative disease.
MRI THORACIC SPINE:
1. Mild multilevel discogenic degenerative disease in the thoracic spine.
2. Mildly to moderately exaggerated thoracic kyphosis.
3. Small left pleural effusion.
4. Severe distention of the pancreatic duct and severe pancreatic atrophy consistent with severe chronic pancreatitis and an obstructing stone in the pancreatic neck.
MRI SPINE:
1. MODERATE CENTRAL CANAL STENOSIS at L4/L5 secondary to a moderate-sized diffuse disc bulge and moderate bilateral facet joint arthrosis.
2. Small to moderate-sized central disc herniation at L5/S1.
3. Minimal central canal stenosis at L3/L4.
4. Mild discogenic degenerative disease at L3/L4, L4/L5, and L5/S1.
5. Moderate diffuse posterior paraspinal muscle atrophy.
Impression:
(Mr. MINA KENT is a 83 year old M who has presented to the hospital with (symptoms/chief complaint) of worsening LBP with lumbar radiculopathy/sciatica (R>L) with difficulty standing and walking
Recommendations:
1. Tizanidine 4 mg BID
2. Bedrest
3. PT/OT
4. Lidoderm patch
5. Gabapentin 300mg TID
6. Pain management consult OP with DOTTIE
7. Motrin 600mg TID
8. Minimize Lipitor
Discussed patient care with: Hospitalist
Vital Signs and Labs
-
Vital Signs and Labs:
Vital Signs
Temp Pulse Resp BP Pulse Ox
36.8 C 95 18 149/82 99
05/24/24 19:35 05/24/24 19:35 05/24/24 19:35 05/24/24 19:35 05/24/24 19:35
Lab Results
05/24/24 06:59
05/24/24 06:59
Sodium 139 mmol/L (135-145) 05/24/24 06:59
Potassium 4.6 mmol/L (3.5-5.1) 05/24/24 06:59
BUN 26 mg/dl (9-20) H 05/24/24 06:59
Glucose 99 mg/dl (70-99) 05/24/24 06:59
Calcium 8.6 mg/dl (8.4-10.2) 05/24/24 06:59
LDL Cholesterol, Calc 63 mg/dl 05/24/24 06:59
Allergies
-
Allergies
Allergy/AdvReac Type Severity Reaction Status Date / Time
No Known Allergies Allergy Unverified 05/23/24 17:57
Medications
-
Active Medications
Generic Name Dose Route Start Last Admin
Trade Name Freq PRN Reason Stop Dose Admin
Acetaminophen 650 mg 05/24/24 05:24
Acetaminophen 325 Mg Tablet PO 06/21/24 05:23
Q4HPRN PRN
Mild Pain / Temp > 101
Albuterol/Ipratropium 3 ml 05/24/24 11:18
Ipratropium 0.5/Albuterol 3 Mg (3 Ml Ampul) INH
R Q4HPRN PRN
SOB, wheezing
Protocol
Aspirin 81 mg 05/24/24 22:00
Aspirin 81 Mg Chewable Tablet PO 06/21/24 21:59
HS GIOVANI
Atorvastatin Calcium 80 mg 05/24/24 22:00
Atorvastatin (Lipitor) 80 Mg Tablet PO 06/21/24 21:59
HS GIOVANI
Ceftriaxone Sodium 1,000 mg 05/24/24 14:00 05/24/24 15:16
Ceftriaxone 1000 Mg / 10 Ml Vial IV 1,000 mg
Q24H GIOVANI Administration
Dextrose 12.5 grams 05/24/24 05:24
Dextrose 50% (0.5 Grams/Ml) 50 Ml Syringe IV 06/21/24 05:23
[id number] PRN
hypoglycemia
Protocol
Doxycycline Hyclate 100 mg 05/24/24 20:00
Doxycycline 100 Mg Capsule PO
Q12 GIOVANI
Enoxaparin Sodium 40 mg 05/24/24 18:00 05/24/24 17:50
Enoxaparin Sodium 40 Mg/0.4 Ml Syringe SC 06/21/24 17:59 40 mg
QPM GIOVANI Administration
Ergocalciferol 50,000 units 05/24/24 11:00 05/24/24 15:16
Ergocalciferol (Vitamin D-2) 44965 Units Capsule PO 06/21/24 10:59 50,000 units
Q7D@0800 GIOVANI Administration
Gabapentin 300 mg 05/24/24 19:57
Gabapentin 100 Mg Capsule PO 06/21/24 07:59
TID GIOVANI
Glucagon 1 mg 05/24/24 05:24
Glucagon 1 Mg Vial IM 06/21/24 05:23
PRN PRN
hypoglycemia
Protocol
Sodium Chloride 1,000 mls @ 100 mls/hr 05/24/24 05:24 05/24/24 06:36
Nss IV 1,000 mls
.Q10H GIOVANI Administration
Insulin Glargine 14 units/ 0.14 mls @ 0 mls/hr 05/24/24 22:00
Device SC 06/21/24 21:59
HS GIOVANI
As Directed
Insulin Aspart 0 units 05/24/24 07:30 05/24/24 17:49
Insulin Aspart Low Resistance 300 Units/3 Ml Pen.Injctr SC 06/21/24 07:29 1 units
AC GIOVANI Administration
Protocol
Miconazole Nitrate 0 applic 05/24/24 08:00 05/24/24 09:26
Miconazole Powder Bottle TOPICAL 06/21/24 07:59 1 applic
BID GIOVANI Administration
Mineral Oil 133 ml 05/24/24 11:22
Mineral Oil (Fleet) Enema 133 Ml (4.5 Oz) RECTAL 06/21/24 11:21
DAILYPRN PRN
constipation
Pt Own (Rasagiline 1 1 mg 05/24/24 08:00
Mg Tablet) PO 06/21/24 07:59
DAILY GIOVANI
Oxycodone HCl 5 mg 05/24/24 09:25
Oxycodone 5 Mg Regular Release Tablet PO 06/07/24 09:24
Q6HPRN PRN
moderate-severe pain
Pantoprazole Sodium 40 mg 05/24/24 08:00 05/24/24 09:26
Pantoprazole Sodium 40 Mg/10 Ml Vial IV 06/21/24 07:59 40 mg
DAILY GIOVANI Administration
Polyethylene Glycol 17 grams 05/24/24 05:24
Polyethylene Glycol Powder 17 Grams Packet PO 06/21/24 05:23
DAILY PRN
Constipation
Polyethylene Glycol 17 grams 05/24/24 12:00 05/24/24 15:15
Polyethylene Glycol Powder 17 Grams Packet PO 06/21/24 11:59 17 grams
DAILY GIOVANI Administration
Sennosides 17.2 mg 05/24/24 22:00
Sennosides (Senokot) 8.6 Mg Tablet PO 06/21/24 21:59
HS GIOVANI
Sodium Chloride 0 flush 05/24/24 06:00
Sodium Chloride 0.9% (Flush) Syringe IV 06/21/24 05:59
PER PROTOCOL GIOVANI
Sodium Chloride 10 ml 05/24/24 08:00 05/24/24 09:26
Sodium Chloride 0.9% (Preservative Free) 10 Ml Vial IV 06/21/24 07:59 10 ml
DAILY GIOVANI Administration
Sterile Water 10 ml 05/24/24 14:00 05/24/24 15:15
Sterile Water For Injection 10 Ml Vial IV 06/21/24 13:59 10 ml
Q24H GIOVANI Administration
Tizanidine HCl 4 mg 05/24/24 20:00
Tizanidine 4 Mg Tablet PO 06/21/24 19:59
BID GIOVANI
Home Medications
�Medication �Instructions �Recorded
acetaminophen 650 mg 1,300 mg PO [id number] PRN mild pain 05/23/24
tablet,extended release (Tylenol
Arthritis Pain)
aspirin 81 mg chewable tablet 81 mg PO HS 05/23/24
atorvastatin 80 mg tablet 80 mg PO HS 05/23/24
fluoxetine 20 mg tablet 20 mg PO DAILY 05/23/24
insulin aspart U-100 100 unit/mL 1 sliding scale dose SC TID 05/23/24
(3 mL) subcutaneous pen (Novolog
FlexPen U-100 Insulin aspart)
insulin glargine 100 unit/mL (3 14 unit SC HS 05/23/24
mL) subcutaneous pen (Basaglar
KwikPen U-100 Insulin)
lidocaine HCl 4 %-benzyl alcohol 1 ea topical QIDPRN PRN right side 05/23/24
10 % topical liquid roll-on and lower back pain
(Salonpas Lidocaine Plus)
rasagiline 1 mg tablet 1 mg PO DAILY 05/23/24
[2024-05-24] MEDS: VIBRAMYCIN 100 MG PO (20:38)
[2024-05-24] MEDS: ZANAFLEX 4 MG PO (20:42)
[2024-05-24] MEDS: NEURONTIN 300 MG PO (20:42)
[2024-05-24] MEDS: SENOKOT 17.2 MG PO (20:43)
[2024-05-24] MEDS: LOW STRENGTH ASPIRIN 81 MG PO (20:43)
[2024-05-24 21:29] LABS: Glucose - Point of Care 174 mg/dl (70-99)
[2024-05-24] MEDS: LANTUS 0.14 UNITS SC (22:00)
[2024-05-24] MEDS: NSS IV (22:04)
[2024-05-25] VITALS (7 sets, daily range): BP systolic 91–199; BP diastolic 54–98; PULSE 81–111; BMI 28.1
[2024-05-25] MEDS: NSS 1000 IV ×2 (00:05→14:13)
[2024-05-25 06:20] LABS: Reticulocyte Count 1.2 % (0.4-2.8)
[2024-05-25 06:59] LABS: Iron 32 ug/dl (49-181); LDH 252 U/L (120-246)
[2024-05-25 07:09] LABS: Percent Saturation 12 % (20-50); Total Iron Binding Capacity 262 ug/dl (261-462)
[2024-05-25 07:49] LABS: Glucose - Point of Care 87 mg/dl (70-99)
[2024-05-25 07:57] LABS: Folate 10.7 ng/ml (2.76-20); Vitamin B12 719 pg/ml (239-931)
[2024-05-25] MEDS: NOVOLOG FLEXPEN-LOW RESISTANCE SC ×2 (07:57→13:39)
[2024-05-25] MEDS: MIRALAX 17 GRAMS PO (08:29)
[2024-05-25] MEDS: PROTONIX 40 MG PO (08:30)
[2024-05-25] MEDS: VIBRAMYCIN 100 MG PO ×2 (08:30→20:21)
[2024-05-25] MEDS: NEURONTIN 300 MG PO ×3 (08:30→22:21)
[2024-05-25] MEDS: DESENEX/MITRAZOL/ZEASORB 1 APPLIC TOPICAL ×2 (08:30→20:21)
[2024-05-25] MEDS: ZANAFLEX 4 MG PO ×2 (08:30→20:21)
[2024-05-25] MEDS: PROCARDIA XL (EXTENDED RELEASE) 60 MG PO (09:03)
[2024-05-25 11:18] LABS: Glucose - Point of Care 127 mg/dl (70-99)
--- NOTE | 2024-05-25 12:08 | CM ---
Patient with Dx ambulatory dysfunction 2/2 chronic T12 compression Fx and b/l severe OA of the hips. PT & OT recommend skilled rehab. Per nurse assessment; forgetful.
Spoke with patient's Sherry; her daughter helped her look at SNFs on Medicare.gov and they are interested in: [facility]. Agree to make referrals and explained CM will follow up with her once facilities respond, most
likely tomorrow.
SNF referrals placed.
Plan follow up SNF referrals.
--- NOTE | 2024-05-25 12:55 | W.PN.HOSP.TC ---
Today's Communication/Plan
-
CM for rehab - started process
Assessment / Plan
Assessment / Plan
83yo M with PMHx of DM, HTN, anxiety, chronic back pain with Hx of spinal stenosis and R hip pain came with c/o worsening of his ambilatory capacity and back pain. during further questioning - patient has stable limited ambulatory capacity for
years, previously followed in [facility] but since he moved to [place] - he was not seen by any orthopedist/spine therapist for years as per patient and . On the day of admisison he became extremely weak and could not even hold himself
on his legs (usually minimally ambulatory with walker)
CT on admission found chronic T12 compression Fx and b/l severe OA of the hips
On admission concern for recent flu and COVID-19 shots causing weakness, however no concerns for GBS. Most likely etiology is known spinal stenosis. ALso managed for possible LLL CAP. Medically stable for d/c on oral ABx to rehab - CM aware and
working on it
A/P:
#ambulatory dysfunction 2/2 chronic T12 compression Fx and b/l severe OA of the hips with PMHx of spinal stenosis most likely complicated by osteoporosis
PT/OT
MRI back with L5 moderate spinal stenosis. Neurosurgery recommended physiatry/pain management for possible therapeutic DOTTIE as outpatient
Neurology consult
MRI thoracic and lumbar spine
As per review with the patient - pain is chronic, mildly exacerbated 2 days ago and improved since then to the baseline and patient has baseline ambulatory deficiency
pain mgmt
#Vitamin D deficiency
replete
#Chronic pancreatitis with 9mm calcification obstructing pancreatic duct
#Distal esophageal thickening
GI consult: outpatient f/u with . Patient declined inpatient EGD
#LLL atelectasis vs pneumonia
Reasonable to treat with 5days Abx since patient came with weakness, which can be indirect sign of infection
incentive spirometry
#Mild BRAXTON
iron supplements
GI involved - outpatient f/u
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
Cr WNL
outpatient nephrology f/u
DM diet, accuchecks, Insulin SS, continue lantus 14units home dose
Cont gabapentin
#CAD stable
#HLD
Troponin WNL
cont home meds
#ESR/CRP elevation
non-specific findings
DVT ppx on lovenox
DNR/DNI
I have spent at least 39min reviewing chart, test results, communication with consultants and direct patient care
Anticipated Discharge: Within 24 hours
Subjective/Interval History
-
Date of Service: May 25, 2024
Objective Data
-
Vital Signs:
Vital Signs
Temp Pulse Resp BP Pulse Ox
98.0 F 69 18 109/65 99
05/25/24 11:30 05/25/24 11:30 05/25/24 11:30 05/25/24 11:30 05/25/24 11:30
I&O
05/24/24 05/25/24 05/26/24
06:59 06:59 06:59
Intake Total 600 / 600
Output Total 150 / 150
Balance 450 / 450
Review of Systems
-
History Source: Patient
All other systems: Reviewed and negative
Physical Exam
-
General: No Apparent Distress
Respiratory: Clear to Auscultation
Cardiac: Regular Rhythm
GI: Soft, Nontender and Nondistended
Musculoskeletal: No Clubbing, No Cyanosis and No Edema
Neuro: Awake, Alert, Oriented and AO x 3
Psych: Calm
[2024-05-25] MEDS: ROCEPHIN 1000 MG IV (14:14)
[2024-05-25] MEDS: STERILE WATER FOR INJECTION 10 ML IV (14:14)
[2024-05-25] MEDS: FERRLECIT 110 MG IV (14:17)
--- NOTE | 2024-05-25 16:04 | PTCARENOTE ---
Assumed care of pt from previous nurse. Pt denies pain. pt reports feeling 'much better' than when admitted. Pt call perez is within reach, pt rings godwin. will cont to monitor.
[2024-05-25 16:26] LABS: Glucose - Point of Care 158 mg/dl (70-99)
[2024-05-25] MEDS: LOVENOX 40 MG SC (17:19)
[2024-05-25] MEDS: LIPITOR 20 MG PO (17:20)
[2024-05-25] MEDS: NOVOLOG FLEXPEN-LOW RESISTANCE 1 UNITS SC (17:47)
[2024-05-25 21:25] LABS: Glucose - Point of Care 191 mg/dl (70-99)
[2024-05-25] MEDS: SENOKOT 17.2 MG PO (22:21)
[2024-05-25] MEDS: LANTUS 0.14 UNITS SC (22:22)
[2024-05-25] MEDS: LOW STRENGTH ASPIRIN 81 MG PO (22:22)
[2024-05-26] VITALS (7 sets, daily range): BP systolic 91–143; BP diastolic 45–71; PULSE 88–92
[2024-05-26 08:22] LABS: Glucose - Point of Care 55 mg/dl (70-99)
[2024-05-26] MEDS: DESENEX/MITRAZOL/ZEASORB 1 APPLIC TOPICAL ×2 (08:49→21:04)
[2024-05-26] MEDS: VIBRAMYCIN 100 MG PO ×2 (08:53→21:04)
[2024-05-26] MEDS: ZANAFLEX 4 MG PO ×2 (08:53→21:04)
[2024-05-26] MEDS: PROTONIX 40 MG PO (08:53)
[2024-05-26] MEDS: MIRALAX 17 GRAMS PO (08:53)
[2024-05-26] MEDS: NEURONTIN 300 MG PO ×3 (08:53→21:04)
[2024-05-26] MEDS: NOVOLOG FLEXPEN-LOW RESISTANCE SC ×3 (08:59→16:47)
[2024-05-26 09:00] LABS: Glucose - Point of Care 72 mg/dl (70-99)
[2024-05-26 11:13] LABS: Glucose - Point of Care 136 mg/dl (70-99)
[2024-05-26] MEDS: STERILE WATER FOR INJECTION 10 ML IV (13:39)
[2024-05-26] MEDS: ROCEPHIN 1000 MG IV (13:39)
[2024-05-26] MEDS: FERRLECIT 110 MG IV (13:39)
--- NOTE | 2024-05-26 14:00 | CM ---
Reviewed the chart notes and spoke with the patient at the bedside. Patient requested CM speak with his spouse. Per spouse, she toured [facility] and is waiting for call back from two other facilities that she would like to tour. [place]
[facility] and [facility]. [facility] unable to accept the patient. Referrals forwarded for [facility] and [facility]. CM continues to be available to patient/family and is monitoring medical plan for needs at discharge.
Plan: Discharge to SNF once bed found and precert obtained.
--- NOTE | 2024-05-26 14:05 | W.PN.HOSP.TC ---
Today's Communication/Plan
-
medically stable for SNF pending bed/auth
Assessment / Plan
Assessment / Plan
83yo M with PMHx of DM, HTN, anxiety, chronic back pain with Hx of spinal stenosis and R hip pain came with c/o worsening of his ambilatory capacity and back pain. during further questioning - patient has stable limited ambulatory capacity for
years, previously followed in [facility] but since he moved to [place] - he was not seen by any orthopedist/spine therapist for years as per patient and . On the day of admisison he became extremely weak and could not even hold himself
on his legs (usually minimally ambulatory with walker)
CT on admission found chronic T12 compression Fx and b/l severe OA of the hips
On admission concern for recent flu and COVID-19 shots causing weakness, however no concerns for GBS. Most likely etiology is known spinal stenosis. ALso managed for possible LLL CAP. Medically stable for d/c on oral ABx to rehab - CM aware and
working on it
Assessment:
Acute ambulatory dysfunction 2/2 chronic T12 compression Fx and b/l severe OA of the hips with PMHx of spinal stenosis most likely complicated by osteoporosis
- CMRI: Small disc herniations at C3/C4 and C4/C5 causing mild spinal cord compression.
- TMRI: Mild multilevel discogenic degenerative disease in the thoracic spine. Mildly to moderately exaggerated thoracic kyphosis.
- LMRI: MODERATE CENTRAL CANAL STENOSIS at L4/L5 secondary to a moderate-sized diffuse disc bulge and moderate bilateral facet joint arthrosis. Small to moderate-sized central disc herniation at L5/S1. Minimal central canal stenosis at L3/L4. Mild
discogenic degenerative disease at L3/L4, L4/L5, and L5/S1. Moderate diffuse posterior paraspinal muscle atrophy.
- chronic findings, and OP f/u to consider DOTTIE. No surgical intervention per NeuroSx
- continue BID muscle relaxers, pain control
Vitamin D deficiency
- replete
Chronic pancreatitis with 9mm calcification obstructing pancreatic duct
Distal esophageal thickening
- GI consult: outpatient f/u with . Patient declined inpatient EGD
LLL atelectasis vs pneumonia
- continue day 3/5 of IV abx
- continue incentive spirometry
Mild BRAXTON
- IV Iron infusion
- GI involved - outpatient f/u
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
- Cr WNL
- outpatient nephrology f/u
- DM diet, accuchecks, Insulin SS, continue lantus 12 units home dose
- Cont gabapentin
CAD stable
HLD
- Troponin WNL
- cont home meds
DVT ppx: Lovenox
Code: DNR/DNI
Anticipated Discharge: 24 - 48 hours
Subjective/Interval History
-
Date of Service: May 26, 2024
denies any new complaints at present
Objective Data
-
Vital Signs:
Vital Signs
Temp Pulse Resp BP Pulse Ox
98.2 F 73 16 98/71 98
05/26/24 11:00 05/26/24 11:00 05/26/24 11:00 05/26/24 11:00 05/26/24 11:00
I&O
05/25/24 05/26/24 05/27/24
06:59 06:59 06:59
Intake Total 600 / 600 [id number] / [id number]
Output Total 150 / 150 200 / 200
Balance 450 / 450 183961 / [id number]
Physical Exam
-
General: No Apparent Distress
HEENT: Normocephalic and Atraumatic
Respiratory: Clear to Auscultation; Negative Wheezes
Cardiac: Regular Rhythm and S1/S2
GI: Soft and Nontender
Musculoskeletal: No Edema
Neuro: AO x 3
Hematologic / Lymphatic: No Lymphadenopathy
Psych: Calm
Data Reviewed
-
Total Time Spent with Patient (in minutes): 42
Labs: Labs Reviewed by me
[2024-05-26 16:08] LABS: Glucose - Point of Care 129 mg/dl (70-99)
[2024-05-26] MEDS: LIPITOR 20 MG PO (17:11)
[2024-05-26] MEDS: LOVENOX 40 MG SC (17:11)
[2024-05-26] MEDS: SENOKOT 17.2 MG PO (21:04)
[2024-05-26] MEDS: LANTUS 0.12 UNITS SC (21:04)
[2024-05-26] MEDS: LOW STRENGTH ASPIRIN 81 MG PO (21:04)
[2024-05-26 21:36] LABS: Glucose - Point of Care 206 mg/dl (70-99)
[2024-05-27] VITALS (7 sets, daily range): BP systolic 110–183; BP diastolic 58–92; PULSE 89–91
[2024-05-27 03:06] LABS: Glucose - Point of Care 61 mg/dl (70-99)
[2024-05-27 03:29] LABS: Glucose - Point of Care 65 mg/dl (70-99)
[2024-05-27 03:49] LABS: Glucose - Point of Care 131 mg/dl (70-99)
--- NOTE | 2024-05-27 03:51 | GLUCOSE ---
SITUATION: pt on Lantus 0300 check was 61. pt asymptomatic. 4 oz of oj given- repeat 15 minutes later was 65. another 4 oz of oj given- repeat 15 mites later was 131- pt placed on low glucose monitoring protocol
BACKGROUND:
ASSESSMENT:
RECOMMENDATION:
[2024-05-27 05:30] LABS: Glucose - Point of Care 92 mg/dl (70-99)
[2024-05-27 07:39] LABS: Glucose - Point of Care 65 mg/dl (70-99)
[2024-05-27 08:35] LABS: Glucose - Point of Care 74 mg/dl (70-99)
[2024-05-27] MEDS: NOVOLOG FLEXPEN-LOW RESISTANCE SC ×2 (08:41→11:57)
[2024-05-27] MEDS: VIBRAMYCIN 100 MG PO ×2 (08:42→20:18)
[2024-05-27] MEDS: PROTONIX 40 MG PO (08:42)
[2024-05-27] MEDS: NEURONTIN 300 MG PO ×3 (08:42→21:40)
[2024-05-27] MEDS: MIRALAX 17 GRAMS PO (08:42)
[2024-05-27] MEDS: RASAGILINE MESYLATE 1 MG PO (08:42)
[2024-05-27] MEDS: ZANAFLEX 4 MG PO ×2 (08:42→20:19)
[2024-05-27] MEDS: DESENEX/MITRAZOL/ZEASORB 1 APPLIC TOPICAL ×2 (08:43→20:18)
--- NOTE | 2024-05-27 09:51 | W.PN.HOSP.TC ---
Today's Communication/Plan
-
medically stable for DC to SNF pending bed/auth etc
Assessment / Plan
Assessment / Plan
83yo M with PMHx of DM, HTN, anxiety, chronic back pain with Hx of spinal stenosis and R hip pain came with c/o worsening of his ambilatory capacity and back pain. during further questioning - patient has stable limited ambulatory capacity for
years, previously followed in [facility] but since he moved to [place] - he was not seen by any orthopedist/spine therapist for years as per patient and . On the day of admisison he became extremely weak and could not even hold himself
on his legs (usually minimally ambulatory with walker)
CT on admission found chronic T12 compression Fx and b/l severe OA of the hips
On admission concern for recent flu and COVID-19 shots causing weakness, however no concerns for GBS. Most likely etiology is known spinal stenosis. ALso managed for possible LLL CAP. Medically stable for d/c on oral ABx to rehab - CM aware and
working on it
Assessment:
Acute ambulatory dysfunction 2/2 chronic T12 compression Fx and b/l severe OA of the hips with PMHx of spinal stenosis most likely complicated by osteoporosis
- CMRI: Small disc herniations at C3/C4 and C4/C5 causing mild spinal cord compression.
- TMRI: Mild multilevel discogenic degenerative disease in the thoracic spine. Mildly to moderately exaggerated thoracic kyphosis.
- LMRI: MODERATE CENTRAL CANAL STENOSIS at L4/L5 secondary to a moderate-sized diffuse disc bulge and moderate bilateral facet joint arthrosis. Small to moderate-sized central disc herniation at L5/S1. Minimal central canal stenosis at L3/L4. Mild
discogenic degenerative disease at L3/L4, L4/L5, and L5/S1. Moderate diffuse posterior paraspinal muscle atrophy.
- chronic findings, and OP f/u to consider DOTTIE. No surgical intervention per NeuroSx
- continue BID muscle relaxers, pain control
Vitamin D deficiency
- replete
Chronic pancreatitis with 9mm calcification obstructing pancreatic duct
Distal esophageal thickening
- GI consult: outpatient f/u with . Patient declined inpatient EGD
LLL atelectasis vs pneumonia
- continue day 4/5 of IV abx
- continue incentive spirometry
Mild BRAXTON
- IV Iron infusion daily x 5 days
- GI involved - outpatient f/u
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
- Cr WNL
- outpatient nephrology f/u
- DM diet, accuchecks, Insulin SS, continue lantus 12 units home dose
- Cont gabapentin
CAD stable
HLD
- Troponin WNL
- cont home meds
DVT ppx: Lovenox
Code: DNR/DNI
Anticipated Discharge: 24 - 48 hours
Subjective/Interval History
-
Date of Service: May 27, 2024
no new complaints at present
Objective Data
-
Vital Signs:
Vital Signs
Temp Pulse Resp BP Pulse Ox
98.1 F 87 20 183/91 95
05/27/24 07:05 05/27/24 07:05 05/27/24 07:05 05/27/24 07:05 05/27/24 07:05
I&O
05/26/24 05/27/24 05/28/24
06:59 06:59 06:59
Intake Total 984468 / [id number] 9361 / 1200
Output Total 200 / 200
Balance 855811 / 331903 2476 / 1200
Physical Exam
-
General: No Apparent Distress
HEENT: Normocephalic and Atraumatic
Respiratory: Negative Wheezes
Cardiac: Regular Rhythm and S1/S2
GI: Soft
Genito-urinary: No Costovertebral Tender
Neuro: AO x 3
Psych: Calm
Data Reviewed
-
Total Time Spent with Patient (in minutes): 42
Labs: Labs Reviewed by me
--- NOTE | 2024-05-27 10:07 | CM ---
CM spoke with patients , Sherry, discussed patient is medically stable for discharge. CM spoke with Aaliyah at [facility], discussed [facility] can offer patient a bed. reports she is touring [facility] today at 2:00 p.m., has a
tour at [facility] tomorrow. reports she does not want to commit to [facility] until she tours [facility]. TALITA spoke with sarah Saldivar at [facility], requesting clinicals faxed to [phone]. CM spoke with Dixie at [facility], awaiting confirmation facility has bed availability. CM received update that [facility] can offer patient a bed, made aware, understands facilities cannot hold beds. requesting call from Hospitalist. CM will
continue to follow for all discharge planning needs.
Plan; SNF once tours facility/makes decision.
[2024-05-27 11:40] LABS: Glucose - Point of Care 130 mg/dl (70-99)
[2024-05-27] MEDS: ROCEPHIN 1000 MG IV (14:36)
[2024-05-27] MEDS: STERILE WATER FOR INJECTION 10 ML IV (14:36)
[2024-05-27] MEDS: FERRLECIT 110 MG IV (15:27)
[2024-05-27 16:28] LABS: Glucose - Point of Care 177 mg/dl (70-99)
[2024-05-27] MEDS: LIPITOR 20 MG PO (17:24)
[2024-05-27] MEDS: LOVENOX 40 MG SC (17:24)
[2024-05-27] MEDS: NOVOLOG FLEXPEN-LOW RESISTANCE 1 UNITS SC (17:24)
[2024-05-27 21:25] LABS: Glucose - Point of Care 162 mg/dl (70-99)
[2024-05-27] MEDS: LOW STRENGTH ASPIRIN 81 MG PO (21:40)
[2024-05-27] MEDS: SENOKOT 17.2 MG PO (21:40)
[2024-05-27] MEDS: LANTUS 0.12 UNITS SC (21:41)
[2024-05-28] VITALS (7 sets, daily range): BP systolic 92–161; BP diastolic 52–99; PULSE 86–90; O2SAT 100
[2024-05-28 07:46] LABS: Glucose - Point of Care 97 mg/dl (70-99)
[2024-05-28] MEDS: NOVOLOG FLEXPEN-LOW RESISTANCE SC (08:00)
[2024-05-28] MEDS: DESENEX/MITRAZOL/ZEASORB 1 APPLIC TOPICAL ×2 (08:11→19:41)
[2024-05-28] MEDS: NEURONTIN 300 MG PO ×3 (08:15→21:14)
[2024-05-28] MEDS: PROTONIX 40 MG PO (08:15)
[2024-05-28] MEDS: MIRALAX 17 GRAMS PO (08:15)
[2024-05-28] MEDS: VIBRAMYCIN 100 MG PO ×2 (08:15→19:41)
[2024-05-28] MEDS: RASAGILINE MESYLATE 1 MG PO (08:15)
[2024-05-28] MEDS: ZANAFLEX 4 MG PO ×2 (08:16→19:41)
--- NOTE | 2024-05-28 09:28 | CM ---
Addendum entered by Halie Ceron 05/28/24 12:17:
CM sent updated clinicals to Kelly at [facility] (fax [phone]), per Kelly, can accept patient tomorrow. Update to Nurse and Hospitalist. CM placed call to , Sherry, discussed plan for discharge tomorrow. Kelly at [facility]
[place] direct number ([phone]). Patient will need ambulance transport.
Plan; [facility] SNF tomorrow.
Addendum entered by Halie Ceron 05/28/24 09:29:
[facility] today around 11:00 a.m. reports first choice would be [facility]. CM spoke with Fabian in admissions at [facility], can accept patient, do not have a bed until tomorrow or Sunday. reports she is also touring [facility]
today. CM placed call to [facility] to confirm bed availability, per admissions, no beds available. CM relayed to patients , will no longer tour [place]. CM relayed to patients , inquiring if patient can stay until end of week when
facility has a bed. CM relayed patient is stable for discharge and can not hold a patient until facility has a bed open if there are other accepting facilities ([place], [place]). CM discussed patient can transfer facilities once
discharged. CM discussed IMM and appeal process. reports she is still planning on touring [facility] and will call CM afterwards.
Plan; to tour [facility], patient stable for discharge, awaiting family decision regarding SNF.
Original Note:
CM spoke with patients Sherry, discussed patient is medically stable for discharge. Per , jocelyning [facility]
[2024-05-28] MEDS: ZOFRAN 4 MG IV (09:36)
--- NOTE | 2024-05-28 09:39 | PTCARENOTE ---
Pt nauseated this am, vomited a small amount of mucous and bile colored liquid. Zofran 4mg IV ordered and given. Will continue to monitor.
[2024-05-28 11:39] LABS: Glucose - Point of Care 179 mg/dl (70-99)
[2024-05-28] MEDS: NOVOLOG FLEXPEN-LOW RESISTANCE 1 UNITS SC (11:43)
--- NOTE | 2024-05-28 12:41 | W.PN.HOSP.TC ---
Today's Communication/Plan
-
dc to SNF in 24 hours
Assessment / Plan
Assessment / Plan
83yo M with PMHx of DM, HTN, anxiety, chronic back pain with Hx of spinal stenosis and R hip pain came with c/o worsening of his ambilatory capacity and back pain. during further questioning - patient has stable limited ambulatory capacity for
years, previously followed in [facility] but since he moved to [place] - he was not seen by any orthopedist/spine therapist for years as per patient and . On the day of admisison he became extremely weak and could not even hold himself
on his legs (usually minimally ambulatory with walker)
CT on admission found chronic T12 compression Fx and b/l severe OA of the hips
On admission concern for recent flu and COVID-19 shots causing weakness, however no concerns for GBS. Most likely etiology is known spinal stenosis. ALso managed for possible LLL CAP. Medically stable for d/c on oral ABx to rehab - CM aware and
working on it
Assessment:
Acute ambulatory dysfunction 2/2 chronic T12 compression Fx and b/l severe OA of the hips with PMHx of spinal stenosis most likely complicated by osteoporosis
- CMRI: Small disc herniations at C3/C4 and C4/C5 causing mild spinal cord compression.
- TMRI: Mild multilevel discogenic degenerative disease in the thoracic spine. Mildly to moderately exaggerated thoracic kyphosis.
- LMRI: MODERATE CENTRAL CANAL STENOSIS at L4/L5 secondary to a moderate-sized diffuse disc bulge and moderate bilateral facet joint arthrosis. Small to moderate-sized central disc herniation at L5/S1. Minimal central canal stenosis at L3/L4. Mild
discogenic degenerative disease at L3/L4, L4/L5, and L5/S1. Moderate diffuse posterior paraspinal muscle atrophy.
- chronic findings, and OP f/u to consider DOTTIE. No surgical intervention per NeuroSx
- continue BID muscle relaxers, pain control
Vitamin D deficiency
- replete
Chronic pancreatitis with 9mm calcification obstructing pancreatic duct
Distal esophageal thickening
- GI consult: outpatient f/u with . Patient declined inpatient EGD
LLL atelectasis vs pneumonia
- continue day 5/5 of IV abx
- continue incentive spirometry
Mild BRAXTON
- IV Iron infusion daily x 5 days
- GI involved - outpatient f/u
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
- Cr WNL
- outpatient nephrology f/u
- DM diet, accuchecks, Insulin SS, continue lantus 12 units home dose
- Cont gabapentin
CAD stable
HLD
- Troponin WNL
- cont home meds
DVT ppx: Lovenox
Code: DNR/DNI
Anticipated Discharge: Within 24 hours
Subjective/Interval History
-
Date of Service: May 28, 2024
slightly nausea this AM, no other complaints
Objective Data
-
Vital Signs:
Vital Signs
Temp Pulse Resp BP Pulse Ox
97.2 F 75 20 134/99 92
05/28/24 11:17 05/28/24 11:17 05/28/24 11:17 05/28/24 11:17 05/28/24 11:17
I&O
05/27/24 05/28/24 05/29/24
06:59 06:59 06:59
Intake Total 1200 / 1200 720 / 720
Balance 1200 / 1200 720 / 720
Physical Exam
-
General: No Apparent Distress
HEENT: Normocephalic and Atraumatic
Respiratory: Negative Wheezes
Cardiac: Regular Rhythm and S1/S2
GI: Soft and Nontender
Neuro: AO x 3
Hematologic / Lymphatic: No Lymphadenopathy
Psych: Calm
Data Reviewed
-
Total Time Spent with Patient (in minutes): 41
Labs: Labs Reviewed by me
[2024-05-28] MEDS: FERRLECIT 110 MG IV (13:24)
[2024-05-28] MEDS: ROCEPHIN 1000 MG IV (13:25)
[2024-05-28] MEDS: STERILE WATER FOR INJECTION 10 ML IV (13:25)
[2024-05-28 16:44] LABS: Glucose - Point of Care 221 mg/dl (70-99)
[2024-05-28] MEDS: LIPITOR 20 MG PO (17:06)
[2024-05-28] MEDS: LOVENOX 40 MG SC (17:06)
[2024-05-28] MEDS: NOVOLOG FLEXPEN-LOW RESISTANCE 2 UNITS SC (17:06)
[2024-05-28] MEDS: MOTRIN 600 MG PO (19:45)
[2024-05-28] MEDS: LOW STRENGTH ASPIRIN 81 MG PO (21:14)
[2024-05-28 21:15] LABS: Glucose - Point of Care 121 mg/dl (70-99)
[2024-05-28] MEDS: SENOKOT 17.2 MG PO (21:15)
[2024-05-28] MEDS: LANTUS 0.12 UNITS SC (21:15)
[2024-05-29 03:00] VITALS: BP 141/66
[2024-05-29 07:54] LABS: Glucose - Point of Care 77 mg/dl (70-99)
[2024-05-29 08:05] VITALS: BP 165/88
--- NOTE | 2024-05-29 10:24 | CM ---
Addendum entered by Halie Ceron 05/29/24 11:48:
Patient scheduled for 3:00 p.m. ambulance transport, updated with time. Voicemail left for Kelly at [facility] with transport time.
Original Note:
CM reviewed chart, patient for discharge today. CM spoke with Kelly ([phone]), confirmed facility can accept patient today. Patient will require ambulance transport. IMM reviewed with , Sherry, on the phone (05/28/24), agreeable to
discharge. Per , she will meet patient at facility today. CM will continue to follow for all discharge planning needs.
Plan; [facility], will require ambulance transport.
[facility]
Report: [phone]
[2024-05-29] MEDS: NOVOLOG FLEXPEN-LOW RESISTANCE SC (10:55)
[2024-05-29 10:58] VITALS: BP 147/77
[2024-05-29] MEDS: ZANAFLEX 4 MG PO (11:13)
[2024-05-29] MEDS: VIBRAMYCIN 100 MG PO (11:13)
[2024-05-29] MEDS: NEURONTIN 300 MG PO (11:13)
[2024-05-29] MEDS: MIRALAX 17 GRAMS PO (11:13)
[2024-05-29] MEDS: RASAGILINE MESYLATE 1 MG PO (11:13)
[2024-05-29] MEDS: PROTONIX 40 MG PO (11:13)
[2024-05-29] MEDS: DESENEX/MITRAZOL/ZEASORB 1 APPLIC TOPICAL (11:15)
[2024-05-29 11:43] LABS: Glucose - Point of Care 221 mg/dl (70-99)
[2024-05-29] MEDS: NOVOLOG FLEXPEN-LOW RESISTANCE 2 UNITS SC (12:31)
--- NOTE | 2024-05-29 12:43 | W.PN.HOSP.TC ---
Today's Communication/Plan
-
dc to SNF today
Assessment / Plan
Assessment / Plan
83yo M with PMHx of DM, HTN, anxiety, chronic back pain with Hx of spinal stenosis and R hip pain came with c/o worsening of his ambilatory capacity and back pain. during further questioning - patient has stable limited ambulatory capacity for
years, previously followed in [facility] but since he moved to [place] - he was not seen by any orthopedist/spine therapist for years as per patient and . On the day of admisison he became extremely weak and could not even hold himself
on his legs (usually minimally ambulatory with walker)
CT on admission found chronic T12 compression Fx and b/l severe OA of the hips
On admission concern for recent flu and COVID-19 shots causing weakness, however no concerns for GBS. Most likely etiology is known spinal stenosis. ALso managed for possible LLL CAP. Medically stable for d/c on oral ABx to rehab - CM aware and
working on it
Assessment:
Acute ambulatory dysfunction 2/2 chronic T12 compression Fx and b/l severe OA of the hips with PMHx of spinal stenosis most likely complicated by osteoporosis
- CMRI: Small disc herniations at C3/C4 and C4/C5 causing mild spinal cord compression.
- TMRI: Mild multilevel discogenic degenerative disease in the thoracic spine. Mildly to moderately exaggerated thoracic kyphosis.
- LMRI: MODERATE CENTRAL CANAL STENOSIS at L4/L5 secondary to a moderate-sized diffuse disc bulge and moderate bilateral facet joint arthrosis. Small to moderate-sized central disc herniation at L5/S1. Minimal central canal stenosis at L3/L4. Mild
discogenic degenerative disease at L3/L4, L4/L5, and L5/S1. Moderate diffuse posterior paraspinal muscle atrophy.
- chronic findings, and OP f/u to consider DOTTIE. No surgical intervention per NeuroSx
- continue BID muscle relaxers, pain control
Vitamin D deficiency
- replete
Chronic pancreatitis with 9mm calcification obstructing pancreatic duct
Distal esophageal thickening
- GI consult: outpatient f/u with . Patient declined inpatient EGD
LLL atelectasis vs pneumonia
- completed 5 days of Abx
- continue incentive spirometry
Mild BRAXTON
- IV Iron infusion daily x 5 days
- GI involved - outpatient f/u
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
- Cr WNL
- outpatient nephrology f/u
- DM diet, accuchecks, Insulin SS, continue lantus 12 units home dose
- Cont gabapentin
CAD stable
HLD
- Troponin WNL
- cont home meds
DVT ppx: Lovenox
Code: DNR/DNI
More than 30 minutes spent in discharge including
Final examination of the patient
Summarizing hospital stay
Instructions for continuing care to all relevant caregivers
Preparation of discharge records, prescriptions, and referral forms
Total time spent (in minutes): 41
Anticipated Discharge: Today
Subjective/Interval History
-
Date of Service: May 29, 2024
denies any new complaints at present
Objective Data
-
Vital Signs:
Vital Signs
Temp Pulse Resp BP Pulse Ox
98.5 F 102 17 147/77 94
05/29/24 10:58 05/29/24 10:58 05/29/24 10:58 05/29/24 10:58 05/29/24 10:58
I&O
05/28/24 05/29/24 05/30/24
06:59 06:59 06:59
Intake Total 720 / 720 1010 / 1010
Balance 720 / 720 1010 / 1010
Physical Exam
-
General: No Apparent Distress
HEENT: Normocephalic and Atraumatic
Respiratory: Negative Wheezes
Cardiac: Regular Rhythm and S1/S2
GI: Soft and Nontender
Musculoskeletal: No Edema
Neuro: AO x 3
Hematologic / Lymphatic: No Lymphadenopathy
Psych: Calm
Data Reviewed
-
Total Time Spent with Patient (in minutes): 41
Labs: Labs Reviewed by me
--- NOTE | 2024-05-29 12:47 | W.DS.TRANS ---
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
-
Discharge Instructions:
Discharge Diagnosis/Procedures weakness from CAP, chronic back pain
Diet Diabetic, Carb Controlled
Activity As tolerated
Driving Restrictions Not until seen by your Dr
Other Services PT,OT
Instructions:
Stand-Alone Forms:
Changes to Home Medications: No
Discharge Medications:
DC Medications w/original date entered in [employer]
aspirin 81 mg chewable tablet 81 mg PO HS 05/23/24
fluoxetine 20 mg tablet 20 mg PO DAILY 05/23/24
insulin aspart U-100 100 unit/mL (3 mL) subcutaneous pen (Novolog FlexPen U-100 Insulin aspart) 1 sliding scale dose SC TID 05/23/24
lidocaine HCl 4 %-benzyl alcohol 10 % topical liquid roll-on (Salonpas Lidocaine Plus) 1 ea topical QIDPRN PRN right side and lower back pain 05/23/24
rasagiline 1 mg tablet 1 mg PO DAILY 05/23/24
acetaminophen 325 mg tablet 650 mg (2 x 325 mg) PO Q4HPRN PRN Mild Pain / Temp > 101 #60 tabs 05/25/24
atorvastatin 20 mg tablet 20 mg PO QPM #30 tabs 05/25/24
ergocalciferol (vitamin D2) 1,250 mcg (50,000 unit) capsule 50,000 unit PO Q7D@0800 #5 caps 05/25/24
ferrous sulfate 325 mg (65 mg iron) tablet 325 mg PO DAILY #30 tabs 05/25/24
gabapentin 300 mg capsule 300 mg PO TID #90 caps 05/25/24
pantoprazole 40 mg tablet,delayed release 40 mg PO DAILY Gastrointestinal issue #30 tabs 05/25/24
polyethylene glycol 3350 17 gram oral powder packet (HealthyLax) 17 g PO DAILY #30 ea 05/25/24
sennosides 8.6 mg tablet (Senna Laxative) 17.2 mg (2 x 8.6 mg) PO HS #30 tabs 05/25/24
insulin glargine 100 unit/mL (3 mL) subcutaneous pen (Basaglar KwikPen U-100 Insulin) 12 unit (0.12 mL) SC HS #0 mL 05/26/24
tizanidine 4 mg tablet 4 mg PO BID #60 tabs 05/26/24
Home Medication Changes
Pending Results: No
Total time spent discharging patient (in min): 41
[2024-05-29] MEDS: FERRLECIT 110 MG IV (14:25)
[2024-05-29] MEDS: FLUSH (NSS) 1 FLUSH IV (14:25)
[2024-05-29] MEDS: STERILE WATER FOR INJECTION 10 ML IV (14:42)
[2024-05-29] MEDS: ROCEPHIN 1000 MG IV (14:44)
[2024-05-29] MEDS: ROXICODONE 5 MG PO (14:53)
[2024-05-29 15:29] VITALS: BP 107/63
== END 2024-05-29 16:05 | DRG 542 ==
LOC: 4 WEST ACU 03:52
PROVIDERS: Emergency Medicine; Internal Medicine; ADMITTING PHYSICIAN Hospitalist; ATTENDING PHYSICIAN Internal Medicine; CONSULT PHYSICIAN Internal Medicine; CONSULT PHYSICIAN Psychiatry & Neurology Neurology; EMERGENCY PHYSICIAN Emergency Medicine; OTHER PHYSICIAN Neurological Surgery
DX: M80.08XA Age-related osteoporosis with current pathological fracture, vertebra(e), initial encounter for fracture (principal); J18.9 Pneumonia, unspecified organism; K86.1 Other chronic pancreatitis; M50.01 Cervical disc disorder with myelopathy, high cervical region; I25.10 Atherosclerotic heart disease of native coronary artery without angina pectoris; G20.A1 Parkinson's disease without dyskinesia, without mention of fluctuations; Z66 Do not resuscitate; F32.A Depression, unspecified; F41.9 Anxiety disorder, unspecified; G89.4 Chronic pain syndrome; E11.51 Type 2 diabetes mellitus with diabetic peripheral angiopathy without gangrene; M48.061 Spinal stenosis, lumbar region without neurogenic claudication; D50.9 Iron deficiency anemia, unspecified; E11.40 Type 2 diabetes mellitus with diabetic neuropathy, unspecified; E78.5 Hyperlipidemia, unspecified; K21.00 Gastro-esophageal reflux disease with esophagitis, without bleeding; K59.09 Other constipation; E66.9 Obesity, unspecified; M47.26 Other spondylosis with radiculopathy, lumbar region; M16.0 Bilateral primary osteoarthritis of hip; E86.0 Dehydration; I65.29 Occlusion and stenosis of unspecified carotid artery; Z68.28 Body mass index [BMI] 28.0-28.9, adult; Z86.73 Personal history of transient ischemic attack (TIA), and cerebral infarction without residual deficits; Z79.4 Long term (current) use of insulin; Z79.82 Long term (current) use of aspirin; Z79.899 Other long term (current) drug therapy; Z11.52 Encounter for screening for COVID-19; Z95.1 Presence of aortocoronary bypass graft; Z87.891 Personal history of nicotine dependence
CPT/HCPCS: 70450; 71046; 71250; 72146; 72148; 74177; 80048; 80053; 80061; 81003; 81015; 82306; 82550; 82607; 82728; 82746; 82962; 83036; 83540; 83550; 83605; 83615; 84443; 84484; 85025; 85027; 85045; 85652; 86140; 87449; 87502; 87811; 87899; 93005; 94640; 96361; 96374; 97163; 97167; 97530; 97535; 99285; J2916; Q9967